=== PATIENT | male | born 1995 | race Caucasian/White ===

== ENCOUNTER → 2018-07-16 13:21 | Outpatient (CLI) | payer BC, MEDICAID, SELFPAY ==
[2018-07-16 14:10] LABS: Prolactin 108.2 ng/mL
[2018-07-16 14:37] LABS: Lactic Acid 3.9 mmol/L (0.4-2.0)
== END ==
PROVIDERS: Family Provider Pediatrics; PCP Pediatrics
DX: M62.838 Other muscle spasm (principal)
CPT/HCPCS: 36415; 83605; 84146

== ENCOUNTER → 2018-07-17 09:33 | Outpatient (CLI) | payer BC, MEDICAID, SELFPAY ==
[2018-07-17 10:58] LABS: Lactic Acid 1.8 mmol/L (0.4-2.0); Prolactin 20.5 ng/mL
== END ==
PROVIDERS: Family Provider Pediatrics; PCP Pediatrics
DX: R25.1 Tremor, unspecified (principal)
CPT/HCPCS: 36415; 83605; 84146

== ENCOUNTER 2019-06-01 09:00 | Outpatient (RCR) | payer BC, MEDICAID, SELFPAY ==
--- NOTE | 2019-06-01 10:17 | BH.SGPN.GN ---
Behaviors/Verbalizations/Mental Status: []Client alert and oriented, casually dressed and groomed. Eye contact poor-asleep at one point. Motor activity within normal limits for his diagnosis. Speech within normal limits. Affect flat, mood dysthymic. Thoughts linear, logical, no signs of hallucinations or delusions. Client Response/Progress/Benefit: []Client entered session quiet and appeared fatigued as he fell asleep during the beginning of group. Therapist able to wake client and client began to take notes. Client heard some of the benefits to developing goals which included; keeps us motivated, keeps us moving forward, gives us purpose, and makes us feel better. Client also heard some of the barriers to setting and accomplishing goals which included; fear of the unknown, unexpected stressors, feeling overwhelmed, unable to make decisions, procrastination, and unrealistic expectations of self. Client became more alert during education on developing SMART goals. Client participated in the group activity and reminded the group to be realistic. Client was also positive and had improved affect during the activity. Benefited from social engagement and learning about goal-setting. First day of IOP. Will continue to prevent decompensation, increase coping skills, and improve daily functioning.
--- NOTE | 2019-06-01 11:25 | BH.SGPN.GN ---
Behaviors/Verbalizations/Mental Status: []]Eye contact is poor, often looking down. Motor activity is appropriate. Appearance is casual. Grooming fair. Speech is Appropriate. Mood is depressed and anxious. Affect is congruent. Thoughts are linear and logical. No evidence of psychosis. Client Response/Progress/Benefit: [Pt attentive throughout, however contributed limited input to discussion. Taking notes throughout and nodding as fellow participants reflected on challenge activity. Engaged in creating own mental health SMART goal and seemed to benefit from developing ways to overcome potential barriers to reaching this goal. Pt struggled with identifying SMART goal, needed assistance with making goal specific and attainable. Pt identifies anxiety, lack of consistency in daily life and lack of confidence to be significant barriers to accomplishing his goals. Seemed to benefit from group assistance of identifying ways to overcome barriers. Pt's first day in IOP. Pt to continue IOP to improve healthy coping, decrease depression, and prevent decompensation.] Narrative Note: []
--- NOTE | 2019-06-03 09:01 | BH.SGPN.GN ---
Behaviors/Verbalizations/Mental Status: []Eye contact is good. Motor activity is restless at times. Appearance is casual, hygiene is fair. Speech is rapid at times. Mood is dysthymic and anxious. Affect is constricted. Thoughts are linear and logical. No evidence of psychosis. Reviewed daily check in sheet and no reports of suicidal ideations or intent. Client Response/Progress/Benefit: []Pt listened attentively to others, providing input when elicited by therapist. Emotion for today is pensive. Pt identified a stressor to be his brothers being agitating this morning when he was trying to get ready for IOP. Pt stated his brothers were making negative statements to him throughout the morning and were trying to impact his mood. Pt identified a positive was choosing to walk away from his brothers this morning instead of continuing to argue. Pt noted sometimes this strategy doesn't work because his one brother will follow him. Pt noted an additional positive as listening to music and doing meditation last night to calm himself down. Pt seemed to benefit from support from peers. Progress noted in application of emotion regulation skills outside of treatment environment. Continued IOP tx recommended to decrease anxiety, prevent decompensation, and increase social supports. Narrative Note: []
--- NOTE | 2019-06-03 11:15 | BH.PSA ---
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 Pt reported he started having pseudoseizures in July 2018 with his most recent episode in April 2019. Pt states his depression is his main problem. Pt endorses hopelessness, worthlessness, occasional guilt, passive suicidal ideation with no plan. He does not want to kill himself he says. Pt states he sometimes will think ?There is no point to life, you might as well end it.? Pt complains of anxiety and occasional panic attacks. His last panic attack was 2 days ago. He has been having problems with this for a long time off and on but his anxiety and depression recently worsened when he dropped out of college 18 mos ago due to anxiety. Pt reports his depression is making it more difficult to complete his ADL?s. Pt states he struggles with building friendships due to social anxiety and thinking everyone is judging him. Pt reports decrease in motivation, low energy, poor concentration, increased appetite, and loss of interest. No signs of anna. Pt cooperative throughout interview. Pt eye contact poor. Pt often rubbing head or hiding face into his shirt when appearing anxious. Pt?s speech became rapid when talking about stressful events. No signs of delusions or hallucinations. 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 Andreea Pascual at [facility] in middle school for counseling. First hospitalization:: denies Medication Trials:: No ECT Therapy:: No Age of first mental health symptoms: Pt reported he first started experiencing anxiety and depression in third grade following his first surgery. Current providers for mental health treatment (counselor, psychiatrist, bilingual case manager, etc.): Dr. Fall - psychiatrist since [employer]. Dr. Renee - pychologist for since jurnior year in high school. Development & Family of Origin - Childhood Significant Childhood Events: Pt started his surgeries for his cerebral palsy when in third grade which pt stated increased anxiety and caused increase stress with connecting with peers. Pt reported he always felt people saw him as vulnerable and weak because of his disability. - Family Who currently lives in your home?: pt states he lives with his dad, mom, and 4 siblings. Describe family composition:: Pt states doesn't have a great relationship with his dad katarzynase feels like his dad favors his sister. Pt reports he believes dad favors his sister because she is most normal. Pt states he has 4 siblings. Pt states he is a triplet with his triplet brother having autism and his triplet sister tends to be impulsive. Pt reports doesn't get along well with his triplet siblings. Pt states he has an 18 year old younger brother has selective mutism. Pt stated he used with this brother, but recently starting to have more discord. - Family History Family Hx of Psychiatric or AOD Problems: sister - ADHD. triplet brother - autism. younger brother - ADHD and selective mutism. Mom - Anxiety. Aunt - Bipolar disorder Ethnicity - Culture Do you identify yourself with any particular cultural, ethnic background, or community?: No - Sexuality Sexual Orientation: Heterosexual Spirituality - Yarsani Do you currently identify with any organized restoration?: Congregation - Beliefs Is there a particular form of support from this community you can use for your recovery?: No Mental Status - Memory Recent Memory: Good Remote Memory: Good - Concentration Concentration: Fair - Eye Contact Eye Contact: Poor - Speech Speech: Rapid, Repetitious - Thought Process Thought Process: Logical, Ruminations Insight: Fair Judgment: Fair Behavior: Anxious - Orientation Orientation: Time, Person, Place, Situation - Appearance Appearance: Appropriate - Mood Mood: Anxious - Affect Affect: Alert Suicide Assessment - Suicidal Ideation Have you ever felt like hurting yourself?: Yes Please explain:: Passive thoughts of - wish I were wouldn't be mad if I didn't wake up. have nothing worth living for, your life is going anywhere. Were you using ETOH/drugs at the time?: No Suicidal Intentional Rating Scale (SIRS): Suicidal thoughts (past), Current suicidal thoughts/No plan/Contracts for safety Physician Notification: If Active suicidal thoughts/Will not contract for safety is checked, contact physician and document in the Physician Notification section below. Violent Behavior/Abuse History - Homicidal Ideation Do you have any homicidal thoughts? If so, explain:: No Is there a known potential victim? If yes, who:: No - Abuse Have you ever been abused?: No - Life Events Are there any other significant life events?: - Grandpa of pancreatic cancer when pt when was 5 years old. Pt states his dog about 1 1/2 years ago. - Safety Do you ever feel threatened in your home? If yes, describe:: No Substance Use - Substance Substance Use Type: None Education & Occupational Histo - Education What is your level of education?: Some College Do you have any learning disabilities?: Yes - IEP - academic for extended time and more clarification on assignments. Service - Service Have you ever been in the ?: No Legal History - Records Have you had any past legal charges?: No Do you have any current legal charges?: No Have you ever been incarcerated? If yes, describe:: No - Court Orders Have you had any past court orders for psychiatric treatment?: No Do you have a present court order for psychiatric treatment?: No Problem Checklist - Current Problem Areas Problem List: Nutritional/Eating pattern changes - increased appetite, Pain management - recently had surgery to replace a pump - taking tylenol for pain., Depressed mood/sad, Anxiety, Anger/aggression, Inattention, Impulsivity - making impulsive decisions before thinking it through, Sleep problems - difficulty falling asleep because of anxious thoughts. 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 Pt reported he started having pseudoseizures in July 2018 with his most recent episode in April 2019. Pt states his depression is his main problem. Pt endorses hopelessness, worthlessness, occasional guilt, passive suicidal ideation with no plan. He does not want to kill himself he says. Pt states he sometimes will think ?There is no point to life, you might as well end it.? Pt complains of anxiety and occasional panic attacks. His last panic attack was 2 days ago. He has been having problems with this for a long time off and on but his anxiety and depression recently worsened when he dropped out of college 18 mos ago due to anxiety. Pt reports his depression is making it more difficult to complete his ADL?s. Pt states he struggles with building friendships due to social anxiety and thinking everyone is judging him. Pt reports decrease in motivation, low energy, poor concentration, increased appetite, and loss of interest. No signs of anna. Pt reports bullying throughout middle school and high school by peers. Pt states bullying has contributed to difficulty with making social connections because anxious around peers due to fear he is being judged. Pt states his cerebral palsy makes him appear ?vulnerable and weak? to others which results in others treating him like he is different. Pt states he has a lot of discord with his siblings in the home because ?we are like oil and water.? Pt reports support is mostly his mom, whom is patient?s legal guardian. Due to mental health symptoms pt tends to isolate and has limited social support besides his mom. Denies any hallucinations but says he feels like sometimes he hears his own thoughts and others can figure out his vulnerabilities. Treatment Plan Recommendations - Recommendations Guidelines: Special needs identified to be included in the development of an individualized treatment plan regarding past psychiatric history and treatment, developmental events, family relationships/events/culture, past and/or current educational, occupational, social, and residential experience, and legal status. Recommendations:: Due to pt's worsening depression, social anxiety, passive thoughts of , limited benefit from traditional outpatient counseling and mental health symptoms interferring with educational, social, and familial functioning IOP level of care recommended to prevent further decompensation or need for higher level of care.
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
--- NOTE | 2019-06-03 14:15 | BH.PSY.EVA_ITS ---
Initial Treatment Plan - Patient Information Visit Information: ADMISSION DATE: EXPECTED LOS: 4-6 weeks - Problems/Symptoms Problem #1:: Depression Symptom:: passive suicidal ideation, negative rumination, decreasede concentrat ion, lackof motivation Problem #2:: Anxiety Symptom:: worries about social situations and college
--- NOTE | 2019-06-03 16:12 | BH.MDN_ITS ---
Multi-Disciplinary Note - Note 60-min Individual Time Started:: 11:12 Date: 06/03/19 Purpose of session/treatment goals addressed:: Purpose of session was to assess pt's current symptoms and stressors. Also, gathered additional background information and established treatment goals for IOP level of care. Eye Contact:: Poor Motor Activity:: Restless Appearance:: Casual Speech:: Rambling, Rapid Mood:: Anxious Affect:: Full Thoughts:: Linear, Logical, No evidence of hallucinations/delusions noted Staff Interventions:: Therapist used open ended questions to elicit pt's current symptoms and stressors. Therapist used probing questions to gather additional background information. Therapist collaborated with pt to identify IOP treatment goals. Therapist inquired what skils have been helpful to pt in the past and what skills she has not found to be helpful. Therapist provided support by using active listening and validating emotions. Client Response:: Pt responded well to session AEB pt opening up about thoughts and feelings. Pt stated he was referred by his psychologist from [facility] at [facility] due to pseudoseizures and worsening depression. Pt stated he has struggled with psuedoseizures since July 2018, which is caused by difficulty managing his stress. Pt reported his depression has been worsening since April 2019 with increased suicidal thoughts. Pt stated he recognized he needed to get additional help becuase this is the worst my depression has been. Pt explained that he feels like a sword fight is occuring in his head all the time between his positive and negative thought patterns. Pt stated it gets exhausting trying to manage his unhelpful thought patterns. Pt reported his anxiety keeps him from being social due to being worried others are constantly judging him. Pt shared while in IOP goals he would like to focus on include: learning coping skills to manage anxiety and depression, skills to manage his negative and anxious thought patterns, and improve independence. Risks/Concerns:: Pt endorses passive thoughts of , but denies suicidal plan or intention to kill self. Pt states he does not want to . Pt is future focused. Progress Toward Goals/Plan:: No progress noted due to pt just starting IOP program. Focus of session was on building rapport and establishing IOP treatment goals. Pt to continue IOP to decrease anxiety, decrease depression, and prevent decompensation. Time Stopped:: 12:15
--- NOTE | 2019-06-05 09:04 | BH.SGPN.GN ---
Behaviors/Verbalizations/Mental Status: []Client alert and oriented, neatly dressed and groomed. Eye contact poor. Motor activity restless. Speech rapid. Affect full, mood euthymic. Thoughts linear, logical, no signs of hallucinations or delusions. Reviewed client?s symptom tracker, no risk for suicidal ideation, plan, or intent as of 06/05/19. Client Response/Progress/Benefit: []Client responded well to session, energetic and participating. Client reports feeling ?scattered and I?m trying to focus? today. Client shared he has had high energy since yesterday. Client is a member of a group in his town called [employer] and they went on a bus ride yesterday. Client reported ?I couldn?t stop laughing. I just kept laughing and laughing.? Client shared it felt good to experience ?natural? laughter again. Client reported he is also starting to feel more comfortable at IOP which is a positive. Client did not share a stressor today, but he reported feeling ?scattered.? Client stated when this happens he tries to use self-talk to ground himself. Appeared to benefit from connecting with peers and reflecting on positives. Will continue IOP to improve daily functioning and reduce the intensity of mental health symptoms.?
--- NOTE | 2019-06-05 10:12 | BH.SGPN.GN ---
Behaviors/Verbalizations/Mental Status: []Client alert and oriented, neatly dressed and groomed. Eye contact good. Motor activity slowed at the beginning of session, then within normal limits. Speech within normal limits. Affect constricted, mood anxious, agitated. Thoughts linear, logical, no signs of hallucinations or delusions Client Response/Progress/Benefit: []Client participated in group discussion and worksheet activity. Worked together with the group to define a crisis and discuss examples of crisis situations. Client helped the group explore how coping with crisis in unhealthy ways can lead to a mental health crisis. Client stated one can prevent external crises from turning into internal crises by recognizing early warning signs and using coping skills. Client shared unmanaged, warning signs, can ?snowball.? Group identified warning signs one could have which included; drinking, distractions, avoidance, sleeping, and crying. Client completed his own personal warning signs worksheet. Client identified his top three crisis warning signs to be ?turtling? or isolating and avoiding, negative thinking, and apathy. Benefited from group by increasing awareness of crisis and personal warning signs. Progress noted in client?s report of increased comfort in the group setting. Will continue IOP tx to improve functioning and increase emotional regulation.
--- NOTE | 2019-06-08 09:05 | BH.SGPN.GN ---
Behaviors/Verbalizations/Mental Status: [Eye contact is poor, often closing eyes. Motor activity is appropriate for pt baseline. Appearance is casual. Speech is Appropriate, at times speaking out loud to self utilizing positive self-talk. Mood is depressed, agitated, anxious. Affect is congruent. Thoughts are linear and logical, some evidence of rumination. No evidence of psychosis. Reviewed daily check in sheet and pt reports suicidal ideations at a rate of 3/5 which is consistent with pt baseline reports. Denies current plan or intent. Pt individual therapist was informed and will check-in with pt to further assess for safety.] Client Response/Progress/Benefit: [Pt actively listening throughout group discussion, AEB providing some input however remained a mostly passive participant. Emotion for today is apathetic which pt consistently indicates as his current mood. Pt attributes current emotion to feeling as though he has no purpose and as though he is ?falling through the cracks?. Went on to describe thoughts that others do not understand what he is going through regarding his mental health and shared spending much of the weekend laying down as a result. Pt able to identify a mental health positive despite ongoing depressive symptoms and noted that his supports have commented on pt increased display of personal responsibility since beginning IOP tx. Pt additionally receptive of and appeared to benefit from support provided by group. Progress noted in pt ability to begin challenging negative thoughts with assistance from group. Pt recommended continued IOP tx to promote healthy change behaviors, reduce depressive sx, and prevent decompensation.] Narrative Note: []
--- NOTE | 2019-06-08 10:20 | BH.SGPN.GN ---
Behaviors/Verbalizations/Mental Status: []Client alert and oriented, casually dressed and fair hygiene. Eye contact poor. Putting head down on table. Motor activity restless. Speech within normal limits. Affect flat, mood depressed. Thoughts linear, logical, no signs of hallucinations or delusions. Client Response/Progress/Benefit: []Despite pt reporting having a migraine and putting head down throughout group he still listened attentively Pt listened attentively to peers and provided input at times during session. Pt appeared to connect with peers comments about the impact perception of failure can have on mental health. Pt reported she tends to catastrophize her failures, which she identified can lead to avoidance. Pt stated she could connect with thought that she sometimes views herself as a failure. Group identified consequences of fear of failure to include: stagnation, isolation, giving up, not trying new things, and unhealthy relationships. Pt seemed to benefit from increased awareness of how fear of failure can impact mental health. Pt to continue IOP level of care to increase follow through of goals, continue to identify and challenge distorted thoughts, and prevent decompensation. Narrative Note: []
--- NOTE | 2019-06-08 11:23 | BH.SGPN.GN ---
Behaviors/Verbalizations/Mental Status: []Client alert and oriented, neatly dressed and groomed. Eye contact poor-head down at times. Motor activity appropriate. Speech within normal limits. Affect flat. Mood anxious, depressed. Thoughts linear, logical, no signs of hallucinations or delusions Client Response/Progress/Benefit: []Client taking notes and participating when prompted. Client completed fear of failure worksheet and shared with group. Client reported fear of failure has impacted his mental health and ability to deal with stress in life. Client shared fear of failure is keeping client from moving on in life. Client identified barriers to overcoming fear of failure which included; staying in his comfort zone, comparing himself to others, identity crisis, difficulty making decisions, and predicting disasters. Client identified things that he can do to overcome fear of failure such as; reaching out to supports, relaxing his mind, affirmations, and positive self-talk. Client reported his goal this week is to reach out to a healthy support. Benefited from identifying the impact that fear of failure has had on his life and developing strategies to overcome this. Client progressing as shown by his increasing self-awareness and willingness to practice new coping skills. Will continue IOP to prevent decompensation and improve emotional regulation.
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
--- NOTE | 2019-06-10 10:15 | BH.SGPN.GN ---
Behaviors/Verbalizations/Mental Status: [] Eye contact is good. Motor activity is appropriate. Appearance is casual. Speech is Appropriate. Mood is depressed/tired. Affect is flat. Thoughts are linear and logical. No evidence of psychosis. Client Response/Progress/Benefit: [] Pt participated very little in group activity or discussion. Pt often had his head down. Appeared to be attentive as he would at times yell out answers and make jokes which were topic related however overall distant and disengaged from group. He remarked that he had little sleep last night. Limited benefit from group. Narrative Note: []
--- NOTE | 2019-06-10 11:14 | BH.SGPN.GN ---
Behaviors/Verbalizations/Mental Status: [Client alert and oriented, casually dressed and groomed. Eye contact poor to fair. Motor activity appropriate to baseline. Speech within normal limits. Affect congruent to topic being discussed, mood depressed, anxious, irritable. Thoughts linear, logical, no signs of hallucinations or delusions. ] Client Response/Progress/Benefit: [Pt receptive of session, engaged throughout AEB pt providing positive input to group discussion. At times struggling with making off topic remarks, however did well to respond to redirection. Pt completed a worksheet where he identified personal pitfalls impacting mental health progress. Identified pitfalls as: insecurity, paranoia, emotional reasoning, self-doubt, anxiety, fear, feeling like a failure, self-comparison, and low self-esteem. Pt actively listening during discussion on how the strategies used to overcome pitfalls in challenge activity could be applied to daily life and discussed that positive thinking is most powerful for him. Group worked together to identify strategies to overcome personal and general pitfalls. Pt identified personal strategies to try as: do a daily mental health check-in, saying positive affirmations, and utilize more relaxation skills. Benefited from identifying personal and general pitfalls and strategies to over these pitfalls. Pt has made progress in IOP with increasing self-awareness and making daily efforts to internalize materials discussed . Recommended continue tx to promote change behaviors, increase ability regulate emotions, decrease depression, and prevent decompensation.] Narrative Note: []
== END 2019-06-10 23:59 ==
LOC: BHIOP 09:00
PROVIDERS: Family Provider Pediatrics; PCP Pediatrics; Referring Provider Psychiatry & Neurology Psychiatry; Visit Provider Psychiatry & Neurology Psychiatry
DX: F33.2 Major depressive disorder, recurrent severe without psychotic features (principal); F41.8 Other specified anxiety disorders; F84.0 Autistic disorder; F44.5 Conversion disorder with seizures or convulsions; G80.9 Cerebral palsy, unspecified; Z79.899 Other long term (current) drug therapy
CPT/HCPCS: H0035; 90837; 90853

== ENCOUNTER 2019-06-12 09:00 | Outpatient (RCR) | payer BC, MEDICAID, SELFPAY ==
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
--- NOTE | 2019-06-12 10:10 | BH.SGPN.GN ---
Behaviors/Verbalizations/Mental Status: []Client alert and oriented, casual appearance. Eye contact good. Motor activity appropriate. Speech within normal limits. Affect congruent, mood anxious. Thoughts linear, logical, no signs of hallucinations or delusions. Client Response/Progress/Benefit: []Client was an active participant in group activity and discussion. Client connected with the topic and able to identify common barriers that keep people stuck from moving forward. Worked with group to identify common internal barriers that keep people stuck which included; fear of the unknown, fear of rejection, fear of failure, unmanaged emotions, negative thoughts, self-doubt, and lack of motivation. Client identified his current reality as client walking down a hill ?that leads to depression and the grim reaper is following me.? Client stated he is starting to feel less depressed since starting IOP. Client shared his realistic, desired reality would be client moving up the hill instead of falling into depression. Client stated he would also have positive supports encouraging him and he would be successful. Client identified personal strengths including; wanting help, being unique, and being intelligent as positives that will help client move closer to his desired reality. Benefited from group as client was able to identify current mental health state and barriers that are impacting progress. Will continue IOP to prevent decompensation and reduce depression and anxiety.
--- NOTE | 2019-06-12 11:10 | BH.SGPN.GN ---
Behaviors/Verbalizations/Mental Status: []Client alert and oriented, casual dress, hygiene tended to. Eye contact poor. Motor activity appropriate. Speech within normal limits. Affect congruent, mood dysthymic. Thoughts linear, logical, no signs of hallucinations or delusions. Client Response/Progress/Benefit: []Pt active participant as evidenced by pt contributing thoughts and ideas during discussion and listened attentively to peers. Pt identified current barriers keeping him from desired realty include: uncontrollable worry, hard times, and fear of failure. Pt worked cooperatively to identify strategies to overcome various barriers which included: using healthy distractions, challenging negative thoughts, logging anxious thoughts, opposite action, and focusing on future goals. Pt reported he plans to use relaxation skills, mindfulness, and getting out of comfort zone to help overcome personal barriers to desired reality. Pt seemed to benefit from identifying strategies he will use to overcome personal barriers. Pt to continue IOP level of care to continue use of healthy coping skills, identify and challenge distorted thoughts and prevent decompensation. Narrative Note: []
--- NOTE | 2019-06-12 12:56 | BH.MDN ---
Multi-Disciplinary Note - Note 30-min Individual Time Started:: 12:18 Date: 06/12/19 Purpose of session/treatment goals addressed:: Purpose of session was to assess pt's current symptoms and stressors. Other topics included: reviewing homework from last individual session, identifying tentative plan for weekend to decrease apathy, and problem solved stressor of being alone at home tomorrow. Eye Contact:: Poor Motor Activity:: Restless Speech:: Rambling, Rapid Mood:: Euthymic, Anxious Affect:: Congruent Thoughts:: Logical, Racing, No evidence of hallucinations/delusions noted Staff Interventions:: Therapist used open ended questions to elicit pt's current symptoms and stressors. Therapist reviewed pt's homework from last session. Discussed tentative plan for weekend. Assisted pt with identiying activities and skills can engage in to help manage mental health symptoms. Challenged pt's negativity towards ideas/suggestions on strategies to decrease isolation. Client Response:: Pt reported he is doing better today compared to earlier in the week. Pt stated he is progressing with being more responsible at home in regards to completing chores. Pt reported prior to IOP he would just lay around and refuse to complete essential chores/daily responsibilities. Pt reported he also has decreased his anger outbursts by using positive affirmations and positive self-talk. Pt stated he practiced the grounding tool taught to him last individual session and reported it seemed to help bring him back to the moment. Pt shared he attempted to do creative writing, however is finding it a challenging goal due to his hand cramping. Pt open to trying creative writing by making a video recording or audio recording of his ideas. Pt expressed anxiety about being alone while his family goes to [place] for furniture shopping tomorrow. Pt stated he is anxious about being stuck with my own head because won't have others around him as distractions. Pt initially not willing to problem solve about decreasing isolation. Pt reported he would be willing to figure out if he can go visit another family member while his family goes to [place]. Pt stated he will also continue to practice his grounding tool and do a creative story video. Risks/Concerns:: Pt denies current suicidal ideation, plan, and intention. Progress Toward Goals/Plan:: Pt progressing with completing chores at home, using healthy skills to manage anger outbursts, and following through with homework. Pt continues to struggle with feeling isolated, distorted thought patterns, and social anxiety. Pt to continue IOP level of care to increase use of healthy coping skills to manage anxiety and depression, increase awareness of distorted thought patterns, and prevent decompensation. Time Stopped:: 12:35
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
--- NOTE | 2019-06-15 10:18 | BH.SGPN.GN ---
Behaviors/Verbalizations/Mental Status: []Client alert and oriented, neatly dressed and groomed. Eye contact fair-head down at times. Motor activity appropriate. Speech within normal limits. Affect congruent, mood anxious, dysthymic. Thoughts linear, logical, no signs of hallucinations or delusions. Client Response/Progress/Benefit: []Client quiet during discussion, but he participated in activity. Attentive and engaged during discussion of how emotions and negative thinking impact ability to change. Listened as the group identified benefits to making changes in our lives which included; feeling accomplished, improved self-esteem, reduced anxiety and depression, and better coping skills. Group then identified barriers to change or what keeps us from making changes which included; negative thinking, fear of the unknown, anxiety, fear of failure, lack of motivation, and ambivalence. Client participated along with group in activity where they identified and discussed the emotions related to change. Benefited from increased awareness and understanding of emotions, benefits, and barriers related to change. Client continues to report sleep issues which leads to client being fatigued during group. Client reports application of calming skills when he feels anxious which demonstrates progress. Will continue IOP to prevent decompensation and improve daily functioning.
--- NOTE | 2019-06-15 11:20 | BH.SGPN.GN ---
Behaviors/Verbalizations/Mental Status: [Eye contact poor to fair. Motor activity is appropriate for pt baseline. Appearance is casual. Speech is appropriate rate and tone. Mood is euthymic, tired. Affect is congruent with mood. Thoughts are linear and logical. No evidence of psychosis.] Client Response/Progress/Benefit: [Client receptive to session, attentive and providing insight to discussion. Client at times appearing distracted by own thoughts. Client participated in the activity and processed emotions and barriers associated with making change. Client appeared to connect with discussion on weighing the pros and cons associated with change and benefited from learning to do so through use of decisional balance sheet. Identified a change he would like to make to improve mental health as: improving communication of his own needs with social supports. Client reported potential benefits of change as: decreasing anxiety and depression, feeling validated, and increased self-confidence. While the costs of not making the change included: continued anxiety and ?despair?, feeling invalidated, dark thoughts, and loneliness. Progress noted in ability to identify how making this change may promote additional healthy behaviors and thinking patterns. Recommended continued IOP to continue to promote use of healthy coping skills and improve interpersonal effectiveness skills.] Narrative Note: []
--- NOTE | 2019-06-17 10:08 | BH.SGPN.GN ---
Behaviors/Verbalizations/Mental Status: []Eye contact is poor, often hiding face behind shirt or hands when talking. Motor activity is restless. Appearance is casual, fair grooming. Speech is Appropriate. Mood is anxious and dysthymic. Affect is congruent. Thoughts are linear and logical. No evidence of psychosis. Client Response/Progress/Benefit: []Pt active participant in group AEB pt contributing thoughts and ideas throughout session and listening attentively to peers. Group worked together to identify barriers to making changes or taking action in their lives which included: lack of self-awareness, old habits, negative mindset, fear of failure, negative emotions (depression, anxiety, etc..), lack of resources, and other people. Group also identified that benefits of change which included; improved relationships, increased communication, improved mental wellness, increased confidence, and feelings of accomplishment. Pt identified areas she would like to take back control over to include: ruminating on past negative memories, anxiety, depression, negative thoughts, self-criticism, low self-esteem, and low confidence. Benefited from group through awareness of personal areas want to improve and benefits to taking action towards mental wellness. To continue IOP level of care to learn and utilize healthy coping skills, continue to challenge distorted thoughts and prevent decompensation. Narrative Note: []
--- NOTE | 2019-06-17 11:08 | BH.SGPN.GN ---
Behaviors/Verbalizations/Mental Status: []Client alert and oriented, neatly dressed and groomed. Eye contact poor. Motor activity appropriate-covering mouth and leaning over when sharing. Speech within normal limits. Affect constricted, mood anxious, depressed. Thoughts linear, logical, no signs of hallucinations or delusions. Client Response/Progress/Benefit: []Client responded well to session, quiet, but participating in the worksheet and discussion when prompted. Client identified ?no more listening to my dark side? as the one thing he wants to start taking more action on in his mental health treatment. Client reported focusing on this will help client because ?my dark side makes me vulnerable and depressed.? Client attentive during psychoeducation on the different zones of change. Client able to give examples of benefits and costs in each zone. Client identified two small activities to promote behavioral activation towards his goal of not listening to his ?dark side.? Client?s goals included engaging in creative writing, art, and music when he begins to feel negative. Client also plans to spend more time each day around other people which client reports will reduce his ?vulnerability to negative dark side.? Client predicted that these activities will improve his mood. Benefited from psychoeducation and small goal setting. Progress noted as client has been trying to reach out more when feeling depressed and client is receptive to engaging in mindfulness strategies. Continues to report depressive symptoms on a daily basis and can continue to benefit from IOP tx.
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
--- NOTE | 2019-06-19 09:03 | BH.SGPN.GN ---
Behaviors/Verbalizations/Mental Status: []Client alert and oriented, casual dress, hygiene tended to. Eye contact good. Motor activity appropriate. Speech within normal limits. Affect congruent, mood euthymic and positive. Thoughts linear, logical, no signs of hallucinations or delusions. Reviewed client?s symptom tracker, indicated a 2/5 for suicidal ideation and a 0/5 for suicidal intent. These scores indicate a decrease in suicidal thoughts and intention. Pt future focused. Does not appear to be imminent risk of self or others. Client Response/Progress/Benefit: []Pt passive participant as evidenced by pt only contributing when elicited by therapist, however did appear to listen attentively to peers. Pt identified current emotion to be pleasant. Pt identified mental health positive to be meeting with outpatient psychologist whom helped pt see that his negative thoughts are something pt can regain control over. Pt reported another positive is deciding to transfer to [employer] so he can take courses to increase structure and routine in his life. Pt stated stressor is dad having to go back to [place] for work, which pt stated when dad is gone it can cause some strain in the house. Pt reported also feeling worried about his brother leaving for college and pt transferring to a new college. Progress noted with pt deciding to attend college this fall to improve structure and routine. Pt to continue IOP level of care to increase use of healthy coping skills, prevent decompensation, and challenging distorted thought patterns. Narrative Note: []
--- NOTE | 2019-06-19 10:18 | BH.SGPN.GN ---
Behaviors/Verbalizations/Mental Status: [Client alert and oriented, casual appearance. Eye contact fair to good. Motor activity appropriate. Speech within normal limits. Affect congruent, mood anxious, dysthymic. Thoughts linear, logical, no signs of hallucinations or delusions. ] Client Response/Progress/Benefit: [Pt was an active participant in group discussion. Processed quote of the day with peers. Group discussed the MH benefits to open and clear communication with support and providers. Pt connected with peers discussing use of nonverbal behavior to communicate how she feels because. Shared doing so out of anxiety, but recognized that this has had unhelpful impacts on overall relationships. Group discussed the barriers that tend to impact clear and open communication which include: fear, apathy, distorted thoughts, misinterpretations, past negative experiences, not wanting to hurt other?s feelings and assumptions. Pt was attentive during psycho-education on communications styles (aggressive, passive, passive-aggressive, and assertive). Also provided input on the pros and cons to each communication style. Pt stated she could connect with all the different communication styles, specifically that of passive and passive-aggressive. Pt seemed to benefit from increased insight on how communication impacts mental health. Pt to continue IOP level of care to increase generalization of healthy coping skills, identify and challenge distorted thoughts and prevent decompensation.] Narrative Note: []
--- NOTE | 2019-06-19 11:20 | BH.SGPN.GN ---
Behaviors/Verbalizations/Mental Status: []Client alert and oriented, causally dressed and groomed. Eye contact poor. Motor activity appropriate. Speech within normal limits. Affect congruent-laughing, mood euthymic. Thoughts linear, logical, no signs of hallucinations or delusions. Client Response/Progress/Benefit: []Client responded well to session, attentive and engaged in activity. Attentive during ongoing psychoeducation on the different communication styles. Client able to gain insight into his communication style and client reported he is either aggressive or passive. Client shared he is aggressive when he is frustrated and when he feels overwhelmed, he becomes passive. Client reported these communication styles have negatively impacted his mental health and relationships. Client shared when he is passive, he shuts down and isolates, which reinforces his depression. Participated in group activity and took an active role. Able to use the activity to reflect on ways to improve communication. Attentive during psychoeducation on [employer]N and reported he wants to work on being mindful when communicating and not shutting down as much. Appeared to benefit from increasing self-awareness and practicing in the moment coping skills. Will continue tx to prevent decompensation and further reduce depression.
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
--- NOTE | 2019-06-22 10:15 | BH.SGPN.GN ---
Behaviors/Verbalizations/Mental Status: []Client alert and oriented, casually dressed and fair grooming. Eye contact poor. Motor activity appropriate. Speech within normal limits. Affect constricted, mood depressed and anxious. Thoughts linear, logical, no signs of hallucinations or delusions. Client Response/Progress/Benefit: []Pt semi-active participant AEB pt contributing thoughts at times during discussion and appearing to listen attentively to peers. Group identified unhealthy boundaries to include: difficulty saying no, not valuing own thoughts/opinions, sharing too much information, and not asking for help. Pt reported in regards to boundaries pt struggles at times with not knowing how much personal information to share with others and difficulty trusting others. Pt seemed to benefit from increased awareness how difficulties with setting boundaries can negatively impact mental health. Pt to continue IOP level of care to decrease depression, continue to identify and challenge distorted thought patterns, and prevent decompensation. Narrative Note: []
--- NOTE | 2019-06-22 11:26 | BH.SGPN.GN ---
Behaviors/Verbalizations/Mental Status: [Client alert and oriented, casually dressed and appropriately groomed. Eye contact fair. Motor activity appropriate to pt baseline. Speech within normal limits, providing decreased input compared to previous session. Affect congruent to topic being discussed, mood euthymic. Thoughts linear and logical, no signs of hallucinations or delusions. ] Client Response/Progress/Benefit: [Pt responded well to session, providing limited input however appeared to be listening throughout. This was evidenced by pt nodding or making responses of agreement during discussion. Pt listened during discussion reviewing different boundary setting styles and reported connecting with the ?rigid? boundary setting style. Pt indicated relating to the various characteristic of rigid boundaries however opted not to discuss further regarding personal impact rigid boundaries have had on his mental health. Pt appeared to benefit from increasing awareness of his personal boundary style and from learning ways to increase healthy boundaries. Pt progress appears limited as pt engagement in group is often variable, making it difficult to determine his level of progress. Recommended continued IOP tx to improve anxiety management and emotion regulation skills, decrease depressive sx, and prevent decompensation.] Narrative Note: []
--- NOTE | 2019-06-24 09:06 | BH.SGPN.GN ---
Behaviors/Verbalizations/Mental Status: []Client alert and oriented, casually dressed and groomed. Eye contact poor. Motor activity restless. Speech within normal limits. Affect flat, mood irritable, dysthymic, anxious. Thoughts linear, logical, no signs of hallucinations or delusions. Reviewed client?s symptom tracker, and client's scores were consistent with client's baseline. No risk factors noted as of 06/24/19. Client Response/Progress/Benefit: []Client entered session agitated and withdrawn, but client became more engaged and able to de-escalate symptoms. Client reports feeling ?exhausted but I?m keeping myself from falling to the negative side? today. Client shared he continues to experience stressors at home with his brother interfering with client?s sleep schedule. Client recognizes that when he does not sleep well, he feels more depressed, irritable, and anxious. Client is also sad because his brother is going off to college soon and he will miss him. Client stated he has been working hard on ?not giving into my dark side? but client reports feeling defeated today. The group offered support to client and helped client brainstorm strategies to prevent further decompensation. Client recognized he can benefit from being social at group and listening to positive music. Will continue IOP tx to prevent decompensation and improve emotional regulation.?
--- NOTE | 2019-06-24 10:14 | BH.SGPN.GN ---
Behaviors/Verbalizations/Mental Status: []Client alert and oriented, casually dressed, fair grooming. Eye contact good. Motor activity WNL. Speech appropriate rate/tone. Affect congruent, mood euthymic, anxious. Thoughts linear, logical, no signs of hallucinations or delusions. Client Response/Progress/Benefit: []Pt responded well to session, provided input, supportive feedback, and listened attentively to peers. Pt appeared to connect with the quote, providing insight that ?focusing on the past keeps him stuck in rumination which leads to increased depressive symptoms. Pt participated in group discussion regarding mental health benefits of change. Pt identified three small personal changes to improve mental health as: increase positive thoughts, increased self-confidence, and getting out more. Identified current barriers keeping pt from making those changes to be not being able to make eye contact due to anxiety, thinking people believe he is weird, fear of failure, and self-criticism. Pt appeared to benefit from gaining awareness of personal changes that would improve mental health and the barriers keeping client stuck. Progress noted in client level of insight regarding current barriers impacting mental health change and ability to make personal connections with topic at hand. Continue IOP to further increase healthy coping skills, improve socialization and use of supports, and prevent decompensation. Narrative Note: []
--- NOTE | 2019-06-24 11:17 | BH.SGPN.GN ---
Behaviors/Verbalizations/Mental Status: []Client alert and oriented, casual dress, hygiene fair. Eye contact poor, at times fair. Motor activity appropriate. Speech within normal limits. Affect congruent, mood euthymic and positive. Thoughts linear, logical, no signs of hallucinations or delusions. Client Response/Progress/Benefit: []Pt was an active participant, did well to participate in group activity and provided insight and input to discussion at times. Worked with group members to identify connections between activity and strategies for overcoming barriers to making changes. Identified a specific change she would like to make for his mental health, barriers to making that change, and a SMART goal to reach that change. Shared he would like to work on improving his social skills. Pt stated her SMART goal is to make eye contact at least two times during a conversation. Benefited from group as she was able to identify strategies to overcome barriers to change and create a plan for implementing one small change promoting personal growth. Pt to continue IOP level of care to decrease isolation, challenge distorted thoughts and prevent decompensation. Narrative Note: []
--- NOTE | 2019-06-26 10:15 | BH.SGPN.GN ---
Behaviors/Verbalizations/Mental Status: []Client alert and oriented, casually dressed and groomed. Eye contact poor. Motor activity restless. Speech within normal limits-talking quietly to self. Affect constricted, mood anxious. Thoughts linear, logical, no signs of hallucinations or delusions. Client Response/Progress/Benefit: []Client was an active participant in group discussions, providing insight and feedback. Client shared choosing a different path ?is complex and overwhelming.? The group and client worked together to identify barriers that keep one from choosing a new and healthier path to mental wellness which included; unhealthy habits, self-doubt, feeling overwhelmed, lack of awareness, substances, isolation, negative thinking, and ?choosing misery.? Attentive during psychoeducation on the chapters of life. Client was attentive during discussion, providing insight to distinguishing factors in each chapter. Reports that group topic reminded client that change is scary, but it can also benefit one?s mental health in many ways. Benefited from increased awareness and education on barriers to choosing new wellness paths and chapters of life. Progress noted in client?s improving socialization during group. Client continues to report depressive symptoms that interfere with his functioning.
--- NOTE | 2019-06-26 11:15 | BH.SGPN.GN ---
Behaviors/Verbalizations/Mental Status: []Client alert and oriented, casually dressed and groomed. Eye contact good. Motor activity appropriate. Speech within normal limits. Affect congruent, mood anxious and depressed. Thoughts linear, logical, no signs of hallucinations or delusions. Client Response/Progress/Benefit: []Client was an active participant in group discussion, contributing to discussion and listened attentively to others. Completed worksheet and willing to share with the group. Client reported belief he is in chapter 3? as client shared he has improved awareness of his self destructive behavior and is putting effort to change how he gal and manages stress. Client shared to get to the next chapter he wants to focus on setting small SMART goals that will help him focus on moving forward. Stated he recognizes importance of taking responsibility for his own actions so he can learn and make positive changes. Benefited from group by identifying thoughts and behaviors that have kept him stuck and developing plan to promote progress. Will continue in IOP to increase consistent utilization of healthy coping, promote gains, and prevent decompensation. Narrative Note: []
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
--- NOTE | 2019-06-29 09:00 | BH.SGPN.GN ---
Behaviors/Verbalizations/Mental Status: [] Eye contact is poor. Eye are often closed. Motor activity is restless. Appearance is casual. Speech is Appropriate. Mood is anxious. Affect is congruent. Thoughts are linear and logical. No evidence of psychosis. Reviewed daily check in sheet and pt reports 3/5 for suicidal thoughts and 0/5 for intent. This is baseline for patient. Client Response/Progress/Benefit: [] Pt spoke when prompted. Distracted during group. Appeared tired AEB frequent yawns. Disinterested. Long-standing poor social skills. He reports frustration related to his housing situation specifically his brother whom is Autistic and frequents has verbal outbursts and constantly bothers pt. He discussed how this impacts his mental health. He plans on attending college at [employer] and wants to secure housing of his own. He is hesitant as in the past this did not work well. Was in a program at another college where the housing was sub-par for his needs. Reports hope however currently struggles as he reprots being trapped at home with his brother. Mentioned freuqently desire to live independtly and to make friends. Narrative Note: []
--- NOTE | 2019-06-29 10:10 | BH.SGPN.GN ---
Behaviors/Verbalizations/Mental Status: []Client alert and oriented, casually dressed and groomed. Eye contact poor. Motor activity appropriate. Speech within normal limits. Affect constricted, mood depressed and anxious. Thoughts linear, logical, no signs of hallucinations or delusions. Client Response/Progress/Benefit: []Pt engaged in session as evidenced by pt providing input throughout session and listening attentively to peers. Pt connected with peers about sometimes defining himself by his mental illness. Stated he has defined himself as aspergers or as cerebral palsy. Pt stated he engages in self-stigma by isolating because thinks others view him as weird. Pt recognized by isolating he creates a self-fulfilling prophecy because isolation leads to decreased social connections. Pt stated mental health stigma can keep him stuck from moving forward. Pt worked cooperatively with small group to identify various myths and facts about mental illness. Pt seemed to benefit from increased awareness of impact societal and self-stigma has on progress. Progress continues to be hindered by stressful home environment which is impacting pt's ability to generalize skills and get sufficient amount of sleep. Pt to continue IOP level of care to decrease anxiety, continue use of healthy coping, and prevent decompensation. Narrative Note: []
--- NOTE | 2019-06-29 11:14 | BH.SGPN.GN ---
Behaviors/Verbalizations/Mental Status: []Client alert and oriented, neatly dressed and groomed. Eye contact fair. Motor activity appropriate. Speech within normal limits. Affect constricted, mood dysthymic. Thoughts linear, logical, no signs of hallucinations or delusions. Client Response/Progress/Benefit: []Client responded well to session, participating in small group discussion and attentive throughout. Group identified the benefits of addressing stigma which included; increased self-confidence, feeling accepted, improved relationships, and less self-deprecation. Client helped the group identify thoughts and behaviors people engage in that reinforce stigma. Client reported he uses self-deprecating language and not accepting compliments which reinforces stigma in his life. Group brainstormed strategies to combat social and perceived stigma which included; talking to supports, practicing positive self-talk, not using labeling language, and providing psychoeducation. Client reported he will practice saying positive things about himself to combat stigma. Appeared to benefit from increasing awareness of ways he reinforces stigma and how to combat stigma. Will continue IOP tx as client can benefit from ongoing thought challenging and application of healthy coping skills.
--- NOTE | 2019-06-29 14:05 | BH.TPR ---
Treatment Plan Review Date of Treatment Plan Review:: 06/29/19
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
--- NOTE | 2019-07-01 10:15 | BH.SGPN.GN ---
Behaviors/Verbalizations/Mental Status: []Client alert and oriented, casually dressed and groomed. Eye contact poor. Motor activity appropriate. Speech within normal limits. Affect constricted, mood depressed and anxious. Thoughts linear, logical, no signs of hallucinations or delusions. Client Response/Progress/Benefit: []Pt engaged in session AEB pt providing input throughout discussion and listened attentively to peers. Pt reported being a person that has a physical disability his perspective is different compared to someone that is not disabled because when walking alone he is worried someone might perceive him as weak and try to hurt him. Pt connected with peers statements that if have a negative perspective it can keep one stuck from making progress. Pt agreed when in a depressed state, his perspective on life tends to be dark, which he recognizes intensifies his mental health symptoms. Pt seemed to benefit from increased awareness of impact perspective has on mental health. Progress noted with pt engaging in session despite experiencing several recent stressors. Pt to continue IOP level of care to increase use of healthy coping skills, continue to challenge distorted thought patterns, and prevent decompensation. Narrative Note: []
--- NOTE | 2019-07-01 11:20 | BH.SGPN.GN ---
Behaviors/Verbalizations/Mental Status: [Client alert and oriented, casually dressed and groomed. Eye contact fair to good. Motor activity appropriate. Speech within normal limits. Affect congruent, mood dysthymic, anxious. Thoughts linear, logical, no signs of hallucinations or delusions. ] Client Response/Progress/Benefit: [Client receptive of session, attentive and engaged some during small group discussion. At times appearing distracted by own thoughts and struggling to remain present in discussion. Worked with group to discuss the mental health benefits of recognizing strengths which included; improved self-esteem, better relationships, increased hope, decreased anxiety, and willingness to ask for help. Group identified the barriers that have prevented them from acknowledging their strengths and successes. These barriers included; negative thoughts, feeling like a burden, fear of being judged, and past experiences. Group identified strategies to overcome barriers that prevent them from seeing strengths. Pt appeared more engaged during this portion of discussion. These strategies included; keeping track of ?wins?, challenging negative thoughts, using affirmations, and reaching out to supports to challenge perspective when needed. Client was able to identify personal strengths. Strengths included; intelligence, willingness to seek help, resilience, and ability to advocate for himself. Appeared to benefit from recognizing personal strengths and identifying strategies to overcome barriers. Will continue IOP tx to improve mood stability, further increase healthy coping skill application, improve communication and boundary setting skills, and prevent decompensation.] Narrative Note: []
--- NOTE | 2019-07-01 14:03 | BH.MDN ---
Multi-Disciplinary Note - Note 30-min Individual Time Started:: 09:25 Date: 07/01/19 Purpose of session/treatment goals addressed:: Purpose of session was to assess pt's current symptoms and stressors. Other topics included processing recent stressors, challenging distorted thoughts, reviewing healthy skills to manage depressive symptoms, and identifying activities to engage in outside the home. Eye Contact:: Fair Motor Activity:: Restless Appearance:: Disheveled Speech:: Rambling, Rapid Mood:: Anxious, Depressed, Other - tearful Affect:: Labile Thoughts:: Logical, Racing, No evidence of hallucinations/delusions noted Staff Interventions:: Therapist used open ended questions to elicit pt's current symptoms and stressors. Therapist validated pt's emotions and encouraged pt to not hold in his emotions and thoughts. Therapist processed stressors of younger brother leaving for college yesterday and finding out that he cannot register for college classes this semester. Therapist gently challenged pt's all or nothing thinking patterns. Therapist assisted pt with reviewing healthy skills to help pt manage depressive symptoms. Therapist discussed pt potentially attending the [employer] as a way to decrease isolation and get out of the house since he can't take college courses until spring. Provided support by active listening. Client Response:: Pt reported he is feeling frustrated, sad, and depressed today. Pt stated his younger brother left for college yesterday and now he feels alone. Pt became tearful when talking about his brother being gone because doesn't feel connected to his other family members as much as he did with younger brother. Pt stated in addition to his brother leaving he also found out he likely won't be able to register for college classes this semester. Pt reported he is feeling defeated and depressed. Pt stated he was excited to finally be taking steps to return to college, but now can't do that. Pt stated he is open to attending the [employer] and is agreeable to talk with his mom about going there for support. With assistance from therapist pt identified getting out of his room, doing creative writing, and challenging his negative thoughts are skills that can help prevent him from going into depressed state. Risks/Concerns:: Denies current suicidal ideation, plan or intention to date. Progress Toward Goals/Plan:: Slight regression in progress noted with pt expressing depressive symptoms since faced with two stressors of brother going to college and not being able to sign up for college courses this semester. Pt continues to struggle with regulating his emotions when faced with a stressor and ruminates. Pt recommended to continue IOP to challenge distorted thoughts, consistently apply healthy coping skills and prevent decompensation. Time Stopped:: 09:55
--- NOTE | 2019-07-03 09:00 | BH.SGPN.GN ---
Behaviors/Verbalizations/Mental Status: [] Eye contact is poor. Motor activity is appropriate. Appearance is casual. Speech is Appropriate. Mood is irritable. Affect is congruent. Thoughts are linear and logical. No evidence of psychosis. Reviewed daily check in sheet pt notes 3/5 for suicidal thoughts and 0/5 for intent. This is baseline for pt per primary therapist. Client Response/Progress/Benefit: [] Pt was quiet most of group. When called upon pt was very animated and engaged. Notes the he spent a great deal of time yesterday with supports and peers outside. Reports a trip to the zoo. Discussed how this was helpful for his mood and increased his energy and motivation. Struggles with social situations and making friends and reports that days like those are very helpful. Trouble staying on topic and was often making jokes about the zoo. Will continue in IOP to maintain safety, increase health skills and social skills, and improve daily functioning. Narrative Note: []
--- NOTE | 2019-07-03 10:24 | BH.SGPN.GN ---
Behaviors/Verbalizations/Mental Status: [Client alert and oriented, casually dressed and appropriately groomed. Eye contact fair. Motor activity appropriate, consistent with pt baseline. Speech within normal limits. Affect congruent, mood anxious, euthymic. Thoughts linear, logical, no signs of hallucinations or delusions. ] Client Response/Progress/Benefit: [Client receptive to session, somewhat engaged in discussion and did well to increase in participation during activity portion of group. He was a passive participant during discussion on emotion regulation, barriers to regulating emotions, and potential long-term benefits of healthy regulation versus costs of unhealthy means for coping. Pt identified that he often experiences increased negative thoughts when dysregulated which impacts his ability to self-soothe and reinforces depression/anger. Identified his negative thoughts as barriers to communicating emotions in stressful situations as well. Client participated in the activity and did well to make efforts in managing anxiety about being tasked to provide instructions to the group. Progress noted in patient ability to use in the moment coping skills for emotion regulation during activity rather than shutting down when becoming overwhelmed. Client to continue IOP to reinforce utilization of healthy coping skills, emotion regulation, and healthy communication with supports, as well as prevent decompensation. ] Narrative Note: []
--- NOTE | 2019-07-03 11:27 | BH.SGPN.GN ---
Behaviors/Verbalizations/Mental Status: []Client alert and oriented, casually dressed and groomed. Eye contact poor. Motor activity appropriate. Speech within normal limits. Affect congruent, mood euthymic. Thoughts linear, logical, no signs of hallucinations or delusions Client Response/Progress/Benefit: []Client attentive and providing insight to discussion on different zones of regulation. Attentive during psychoeducation on 4 zones of regulation. Client able to identify how he feels in each zone as well as how he acts in each zone. Client also able to identify coping skills he can use to support himself in each zone which included: watching funny videos, positive self-talk, ?positive structure,? taking breaks, and getting out of the house. Client shared he was in the ?yellow? zone yesterday as client was feeling on edge and overwhelmed, but client was able to cope and return to baseline or the ?green zone.? Client recognized he could benefit from continuing to use positive self-talk today and keeping a ?positive structure.? Benefited from group from increased education on zones of regulation or stages of alertness for emotions and healthy coping skills to use for each zone. Recommended continued IOP tx to promote more consistent mood stability and further reduce depression.
--- NOTE | 2019-07-06 10:10 | BH.SGPN.GN ---
Behaviors/Verbalizations/Mental Status: []Client alert and oriented, casually dressed and fair grooming. Eye contact poor. Motor activity appropriate. Speech within normal limits. Affect constricted, mood anxious and dysthymic. Thoughts linear, logical, no signs of hallucinations or delusions. Client Response/Progress/Benefit: []Pt was an active participant as evidenced by pt providing input during discussion and listening attentively to others. Pt worked with the group to define anger and its causes, as well as the internal and external impacts of anger. Group identified potential consequences of unhealthy anger include: losing relationships, guilt, increased stress, resentment, lose job, depression and anxiety. Pt identified underlying factors of his anger include: frustration, stress, anxiety, depression, hunger, loneliness, fear, tiredness, and paranoia. Pt stated common reactions he shows when angry include: yelling, panic, aggression, sadness, and arguing. Benefited from group by increasing awareness of the negative impacts of unhealthy anger and underlying factors that contribute to his personal anger. Progress noted with pt challenging negative thought patterns. Pt to continue IOP level of care to maintain gains, continue to challenge negative thought patterns, and prevent decompensation. Narrative Note: []
--- NOTE | 2019-07-06 14:04 | BH.MDN ---
Multi-Disciplinary Note - Note 45-min Individual Time Started:: 11:15 Date: 07/06/19 Purpose of session/treatment goals addressed:: Purpose of session was to assess pt's current symptoms and stressors. Other topics included: identifying skills to manage mental health symptoms and identifying treatment progress. Eye Contact:: Good Motor Activity:: Appropriate Appearance:: Casual Speech:: Appropriate Mood:: Anxious, Dysthymic Affect:: Congruent Thoughts:: Linear, Logical, No evidence of hallucinations/delusions noted Staff Interventions:: Therapist used open ended questions to elicit pt's current symptoms and stressors. Processed recent stressor with pt's father. Discussed and reviewed healthy coping skills that can help pt manage mental health symptoms. Elicited pt's thoughts about treatment progress since starting IOP. Provided support by using active listening. Client Response:: Pt stated he had a stressful evening yesterday because his dad was drinking alcohol and being a 7 year old. Pt reported when his dad drinks too much then his dad instigates problems. Pt stated his dad was mocking pt and not saying helpful comments. Pt reported he attempted to ignore his dad's comments, but admitted there were several times he responded negatively to his dad. Through discussion pt recognized when his dad is instiagting it is in pt's best interest to go somewhere else in the home to get space so pt doesn't say anything unhelpful. Pt reported over the weekend he had improved mood with decreased negative thinking. Pt stated he is able to catch his negative and suicidal thoughts easier and able to manage the negative or suicidal thoughts. Pt reported he has used the coping skill of opposite action. Pt stated the other day he didn't want to do his chores, but used opposite action which made him feel more accoplished to help out. Risks/Concerns:: Pt reports passive thoughts of , denies suicidal ideation, plan or intention to date. Pt future focused. Progress Toward Goals/Plan:: Progress noted with pt using healthy coping skills of thought challenge, opposite action, and focusing on positive situations. Pt continues to struggle with emotional regulation when involved in a conflct with someone else. Pt reporting improved mood and increased ability to manage passive thoughts of . Pt recommended to continue IOP to maintain gains, increase consistent use of healthy coping skills and preventing decompensation. Time Stopped:: 12:00
--- NOTE | 2019-07-08 09:00 | BH.SGPN.GN ---
Behaviors/Verbalizations/Mental Status: [] Eye contact is poor. Motor activity is baseline. Appearance is casual. Speech is Appropriate. Mood is anxious. Affect is congruent. Thoughts are linear and logical. No evidence of psychosis. Reviewed daily check in sheet and pt reports 2/5 for suicidal thoughts and 0/5 for intent. This is baseline for patient. Client Response/Progress/Benefit: [] Pt participated at times. Pt volunteered to go first today. Daily symptoms tracker notes 5/5 for anxiety, panic, and agitation. Reports that he is planning on attending [employer] in the spring and expects to begin classes in 11/2019. He has accepted the fact that he was not able to start sooner despite being frustrated. Has plans to start slow with 1-2 classes. He appears excited and notes that he wants to start learning about film, be social, and perhaps make friends with similar interests. Touched briefly on challenges with college in the past. Group provided feedback and encouragement that despite past poor experiences this new opportunity will be different. Progress noted. Not catastrophizing setbacks and is hopeful about the future which is big improvement from last week. Will continue in IOP to maintain safety, prevent decompensation, improve social skills, increase support, and increase coping strategies. Narrative Note: []
--- NOTE | 2019-07-08 10:16 | BH.SGPN.GN ---
Behaviors/Verbalizations/Mental Status: []Client alert and oriented, casually dressed and fair grooming. Eye contact poor. Motor activity appropriate. Speech within normal limits. Affect flat, mood depressed. Thoughts linear, logical, no signs of hallucinations or delusions. Client Response/Progress/Benefit: []Pt passive participant AEB pt providing minimal input throughout session, appeared disengaged throughout beginning of session AEB playing a game on phone. Pt showed increased engagement during activity and reviewing the resiliency components. Pt benefitted from brainstorming benefits of being resilient which included: stronger than before, improving ability to cope, builds confidence and self-esteem, and sense of accomplishment. Pt connected with others that not having enough motivation can impact ability to be resilient. Pt progress hindered by pt's lack of follow through of using skills outside treatment environment. Recommend continued IOP tx to prevent decompensation, promote healthy change behaviors, as well as increasing utilization of healthy coping skills. Narrative Note: []
--- NOTE | 2019-07-10 09:05 | BH.SGPN.GN ---
Behaviors/Verbalizations/Mental Status: [] Eye contact is poor. Motor activity is baseline. Appearance is casual. Speech is Appropriate. Mood is anxious. Affect is congruent. Thoughts are linear and logical. No evidence of psychosis. Reviewed daily check in sheet and pt reports 2/5 for suicidal ideations and 0/5 for intent. This is actually below pt's baseline Client Response/Progress/Benefit: [] Pt was more active than usual in group today. Spoke for an extended period of time. Talked about current life stressors and his relationship with his sister and how this impacts his self-esteem. Emotion for today is agitated, exhausted, and flustered. Notes increased responsibility around the house as he is completing chores with less resistance. Notes that he is jealous of most people including those in his family who are normal (referring to his physical disabilities). Notes how his disabilities have impacted his socialization and independence as well as how others view him. Progress noted per pt report. Will continue in IOP to maintain safety, increase coping skills, and increase support and socialization. Narrative Note: []
--- NOTE | 2019-07-10 10:11 | BH.SGPN.GN ---
Behaviors/Verbalizations/Mental Status: []Eye contact is fair. Motor activity is appropriate. Appearance is causal. Speech is Appropriate. Mood is anxious and positive. Affect is congruent. Thoughts are linear and logical. No evidence of psychosis. Client Response/Progress/Benefit: []Pt responded well to session AEB pt listening attentively to others and contributing to discussion throughout group. During discussion pt stated self can be our own worst enemy because if use unhealthy coping then we can keep ourselves stuck. Pt connected with peers during discussion about common unhealthy skills that are often used to manage stressors and mental health. Pt stated he often gal with stress by eating snack foods and watching cartoons. Pt stated he can utilize distraction techniques as a way to cope too frequently which then becomes unhealthy because he is using distraction as avoidance. Pt reported the environment one is raised in can impact how one gal in life. Pt seemed to benefit from increased awareness of benefits of using healthy coping skills and understanding importance of having balance between internal and external coping skills. Pt to continue IOP level of care to continue identifying and challenging distorted thoughts, increase utilization of healthy coping skills, and prevent decompensation. Narrative Note: []
--- NOTE | 2019-07-10 11:14 | BH.SGPN.GN ---
Behaviors/Verbalizations/Mental Status: [Client semi-alert, at times head was down and he appeared to be sleeping, oriented, casually dressed and groomed. Eye contact avoidant. Motor activity appropriate. Speech within normal limits. Affect congruent, mood dysthymic, fatigued. Thoughts linear, logical, no signs of hallucinations or delusions. ] Client Response/Progress/Benefit: [Client receptive of session and appearing to listen throughout AEB pt contributing to discussion at various points. Client often had his head down and was looking away which is consistent with pt typical response to increased fatigue or anxiety. He did well to respond to prompt and direct questions, indicating that pt was attentive throughout. Listened throughout the discussion on the different categories of coping skills and was able to identify a category of coping skills he would like to improve upon. Pt identified wanting to increase grounding skills and indicated that he could start small by spending more time outdoors as a means of doing so. Client appeared to benefit from increasing her repertoire of healthy coping skills. Progress noted in client?s increased engagement despite apparent anxiety. Will continue IOP to promote consistent application of healthy coping skills, decrease depression, as well as prevent decompensation.] Narrative Note: []
== END 2019-07-11 23:59 ==
LOC: BHIOP 09:00
PROVIDERS: Family Provider Pediatrics; PCP Pediatrics; Referring Provider Psychiatry & Neurology Psychiatry; Visit Provider Psychiatry & Neurology Psychiatry
DX: F33.2 Major depressive disorder, recurrent severe without psychotic features (principal); F41.9 Anxiety disorder, unspecified; F84.0 Autistic disorder
CPT/HCPCS: H0035; 90832; 90834; 90853

== ENCOUNTER 2019-07-15 09:00 | Outpatient (RCR) | payer BC, MEDICAID, SELFPAY ==
--- NOTE | 2019-07-15 10:21 | BH.SGPN.GN ---
Behaviors/Verbalizations/Mental Status: [Client alert and oriented, appropriately dressed and groomed. Eye contact fair to good. Motor activity appropriate. Speech within normal limits. Affect congruent, mood euthymic, anxious. Thoughts linear, logical, no signs of hallucinations or delusions. ] Client Response/Progress/Benefit: [Client responded well to session, more actively contributing to discussion than in past groups. Client indicated connecting with the topic of cognitive distortions and provided an example of catastrophizing. Client shared negative thoughts tend to come easier than positive thoughts and that we can ?convince ourselves that things are going to happen before they even do?. Client reported connecting with the potential impacts unmanaged negative automatic thoughts can have on mental health and functioning. Client did well to work with the group on defining the various types of cognitive distortions and ways they have impacted mental health in the past. Client reported connecting with distortions of all or nothing thinking, disqualifying the positives, mind-reading, and catastrophizing. Client reported that ?either I go all in and do something or hide and not do it at all?. Appeared to benefit from increasing awareness of cognitive distortions and how they can impact emotions and behaviors. Client continues show strides in more consistent use of coping skills to manage symptoms and improve daily functioning. Client to continue IOP to decrease depressive symptoms, isolation, and rumination.] Narrative Note: []
--- NOTE | 2019-07-15 11:25 | BH.SGPN.GN ---
Behaviors/Verbalizations/Mental Status: []Eye contact is fair. Motor activity is appropriate. Appearance is casual. Grooming fair. Speech is Appropriate, rapid at times. Mood is euthymic and anxious. Affect is congruent. Thoughts are linear and logical. No evidence of psychosis. Client Response/Progress/Benefit: []Pt active participant during session AEB pt providing contributions throughout group session and engaging in activities. Pt worked cooperatively with peers during group activity. Pt related with peers comments about importance of needing to have awareness and put forth the effort to defeat distorted thought patterns. Pt reported a distorted thought he has is I can't figure all this college stuff out at once, it's too much. Pt identified this thought makes him feel anxious, overwhelmed, discouraged, and afraid. Pt identified his thought is the cognitive distortion catastrophizing. Pt able to reframe distorted thought to taking it one step at a time, don't jump to the end immediately. Pt seemed to benefit from increased awareness of cognitive distortions and practicing reframing distorted thoughts. Pt to continue IOP level of care to maintain gains, improve consistent application of healthy skills and prevent decompensation. Narrative Note: []
--- NOTE | 2019-07-15 15:45 | BH.MDN_ITS ---
Multi-Disciplinary Note - Note 30-min Individual Time Started:: 09:30 Date: 07/15/19 Purpose of session/treatment goals addressed:: Purpose of session was to review pt's current symptoms and stressors. Other topics included reviewing treatment progress since starting IOP, identifying strategies to maintain progress, and solidfying aftercare plans post discharge from IOP. Eye Contact:: Good Motor Activity:: Appropriate Appearance:: Casual Speech:: Appropriate Mood:: Euthymic Affect:: Congruent Thoughts:: Linear, Logical, No evidence of hallucinations/delusions noted Staff Interventions:: Therapist used open ended questions to elicit pt's current symptoms and stressors. Therapist elicited pt's thoughts about treatment progress since starting IOP. Collaborated with pt to identify strategies to maintain progress. Reviewed aftercare plans for after discharge from [facility]. Client Response:: Pt reported he notes progress with increased awareness of negative thoughts, improved ability to reframe negative thoughts, increased use of healthy coping skills, decrease in suicidal thoughts, and overall improvement in mood. Pt stated in order to maintain success he needs to continue applying healthy coping skills he has learned, challenge distorted thoughts, increase socialization, engage in self-care, and get out of his house more often. Pt reported for aftercare he plans to continue to follow up with Dr. Renee for cousneling and will set up tranpsortation to go to [facility] to gain additional supports and decrease isolation. Risks/Concerns:: Denies current thoughts of suicide, intention to date, or plan. future focused. Progress Toward Goals/Plan:: Progress noted with pt reporting improved mood, increased self-awareness of distorted thoughts, improved ability to challenge thoughts, and use of healthy coping skills. Pt is to discharge from [facility] on 07/17/19. Time Stopped:: 10:10
--- NOTE | 2019-07-17 09:00 | BH.SGPN.GN ---
Behaviors/Verbalizations/Mental Status: [] Eye contact is good. Motor activity is baseline. Appearance is casual. Speech is baseline. Mood is euthymic. Affect is full. Thoughts are linear and logical. No evidence of psychosis. Reviewed daily check in sheet and reports 1/5 for suicidal thoughts and 0/5 for intent. This is the lowest his tracker for suicidal thoughts has been. Client Response/Progress/Benefit: [] Pt participated at times during the group discussion. Shared with the group that IOP has been extremely beneficial for him. Discussed how it helped him socially and increased his confidence. Discussed entering [facility] with overwhelming suicidal ideations however currently those thoughts have decreased a great deal. Notes being hopeful about his future and starting at college. He admits that increased independence has been a stressor however overall reports progress. Engaged and laughing with peers. Pt will be discharged from [facility] today. Narrative Note: []
--- NOTE | 2019-07-17 10:16 | BH.SGPN.GN ---
Behaviors/Verbalizations/Mental Status: [Client alert and oriented, casually dressed and appropriate grooming. Eye contact fair to good, at times closed or looking away. Motor activity appropriate for pt baseline. Speech within normal limits. Affect congruent, mood dysthymic, anxious. Thoughts linear, logical, no signs of hallucinations or delusions] Client Response/Progress/Benefit: [Pt remained semi-engaged during discussion AEB providing some input but at times becoming distracted by own thoughts, willing to complete worksheet activity. Pt connected with the group topic of Crisis and did well to work with group to define crisis. Shared that in the past he has struggled with crisis management but is learning to better regulate before responding. Pt identified an example of potential crisis as living in a toxic environment. Connected with discussion on how small setbacks can develop into a crisis if coping skills are unhealthy, providing personal example of recent stressor he was able to prevent from turning into a crisis. Pt shared that his common crisis response is becoming overwhelmed and bitter, as well as avoiding which has prevented him from getting the support needed and escalated crisis as a result. Group identified warning signs for crisis which included; increased sleep, irritability, decreased appetite, and suicidal thoughts. Pt completed the personal warning signs worksheet and identified crisis warning signs to include; increased negative thinking, racing thoughts, and isolation. Benefited from group by increasing awareness of crisis and personal warning signs. Progress noted as pt able to make personal connections between crisis response and reinforcing mental health sx, discussed successfully preventing crisis escalation during individual session when receiving difficult news. To discharge from [facility] given progress made, pt encouraged to follow-up with outpatient providers to continue to maintain gains and promote continued skill development.] Narrative Note: []
--- NOTE | 2019-07-17 11:15 | BH.SGPN.GN ---
Behaviors/Verbalizations/Mental Status: []]Client alert and oriented, casually dressed and groomed. Eye contact poor. Motor activity appropriate. Speech within normal limits. Affect congruent, mood euthymic. Thoughts linear, logical, no signs of hallucinations or delusions. Client Response/Progress/Benefit: []Client responded well to session as evidenced by client listening attentively to others and sharing when prompted. Client identified her warning signs for crisis and gained further awareness of his earliest warning signs. Client recognized that awareness of these warning signs can prevent further crisis and help client utilize healthy coping skills to break the cycle. Client created a crisis action plan to help client better manage earliest warning signs for crisis of uncontrollable worries, racing thoughts, and isolating/avoiding others. Client?s plan included coping skills such as changing environment, reminding self thoughts are thoughts, go outside, staying out of bedroom, and using breathing techniques. Client appeared to benefit from creating a crisis action plan and increasing his self-awareness. Client has made significant treatment progress with decreased depressive symptoms, decreased anxiety, and improved daily functioning. Client is to discharge from [facility] today. Narrative Note: []
--- NOTE | 2019-07-17 13:49 | BH.DS ---
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 Pt reported he started having pseudoseizures in July 2018 with his most recent episode in April 2019. Pt identified at admission his depression as his main problem. Pt endorsed hopelessness, worthlessness, occasional guilt, passive suicidal ideation with no plan. At admission pt reported he sometimes would think ?There is no point to life, you might as well end it.? Pt complained of anxiety and occasional panic attacks. AT admission pt's depression making it more difficult to complete his ADL?s. Pt struggled with building friendships due to social anxiety and thinking everyone is judging him. Pt reported decrease in motivation, low energy, poor concentration, increased appetite, and loss of interest. No signs of anna. Discharge Diagnoses:: F33.1 Depressive disorder recurrent moderate, social anxiety disorder, autism spectrum disorder, history of conversion disorder with pseudoseizures Reason for Discharge:: Pt has made significant progress on his treatment goals and no longer meets medical necessity for [facility] level of care. - Treatment Progress During Treatment & Response: Pt has demonstrated signficiant reduction in depressive and anxious symptoms as indicated by his DSM 5 cross cutting measure scores from intake compared to discharge scores. Per pt's self-report on the depression subscale pt's discharge scores indicate a 50% reduction in depressed symptoms when compared to his intake scores. Per pt's self-report on the anxiety subscale pt's discharge scores indicate a 50% reduction in depressed symptoms when compared to his intake scores. Pt's discharge scores demonstrate a 53% reduction in symptoms compared to intake scores. Pt has also progressed with increased awareness of distorted and negative thought patterns with improved ability to challenge and reframe thoughts. Pt's participation was variable at times he would provide input throughout discussion and other sessions pt remained passive. Pt attended consistently throughout progam. Pt struggled with completing assigned homework from both individual and group therapy sessions. Issues Still to be Addressed:: Pt could benefit from continued focus on identifying and challenging distorted and negative thought patterns. Pt also could benefit from focusing on increasing independence as pt often relies on his mom to do tasks for him. Discharge Recommendations/Instructions:: Pt recommended to return to Dr. Pratt for continued individual counseling and group social skills group. Pt encouraged to go to [facility] for increased social support, increased structure and routine. Discharge Handout: Complete Discharge Handout with client on aftercare options and continuity of care.
== END 2019-07-17 14:43 | disposition home or self-care (01) ==
LOC: BHIOP 09:00
PROVIDERS: Family Provider Pediatrics; PCP Pediatrics; Referring Provider Psychiatry & Neurology Psychiatry; Visit Provider Psychiatry & Neurology Psychiatry
DX: F33.1 Major depressive disorder, recurrent, moderate (principal); F41.8 Other specified anxiety disorders; F84.0 Autistic disorder; F44.9 Dissociative and conversion disorder, unspecified
CPT/HCPCS: H0035; 90832; 90853

== ENCOUNTER 2020-10-13 10:30 | Outpatient (RCR) | payer BC, MEDICAID, SELFPAY ==
--- NOTE | 2020-04-28 07:21 | HP.OTEVAL_ITS ---
Patient's Visit Information DENNIS MALLOY is a 24 year old M, referred to Occupational Therapy by Dr. Rola De La Cruz MD, with a diagnosis of CP hand cramping/pain. Date of Evaluation: 04/27/20 Occupational Therapist: Daphnie Wagner, KATIE/Sussy, CHT - Subjective This 24 year old male was seen for OT eval with dx of hand cramping/pain cerebral palsy, diplegic. pt likes to watch tv, and play [employer] games. pt states he has had difficulty with new crutches pt states he has had them for about a month- hands have been hurting with cutting food and with grasping or holding objects he has noticed his hand contours in strange possitons. pt would like to decrease this pain and improve his ability to use bilateral hand for ADLs and IADLs. - Pain right hand 0 Pain Intensity Range: 2 left hand 0 Pain Intensity Range: 2 - ROM ROM Comments: pt demo bilateral UE ROM WFL. with palpation pt demo tightness in bilateral Forearms/hand. - Strength Wrist: right 5/5 left 5/5 Refinery Technician: right 45# left 60# Lateral Pinch: right 12# left 20# Tripod Pinch: right 12# left 16# - Sensation Sensation Comments: denies - Movement Muscle Tone: min tone bilateral UE Movement Comments: pt demo with min tone bilateral UE and hands- pt demo with exstream ext. of right digits while flexing other digis- - Quick DASH-Disab of Arm,Shoulder& Hand Quick DASH Score: 34.0900 - Goals Goal:: pt will report no pain greater than 1/10 with use of hands with ADls and IADLs by d/c Goal:: Pt will demo a understanding of stretching program to assist in mtg. tone of BUE to increase use of bilateral UE with ADLS and IADLs. pt will demo the ability to grasp/release a variety of different size objects with no increase in pain or tone limiting functional grasp by d/c Goal:: pt and staff will demo understanding of use of padded goves or change out handles to decrease pain with ambulation by 4th visit. - Rehabilitation General Assessment: pt arrives with staff and mother- Pt arrives ambulating with forearm canes and bilateral AFOs.- states new forearm canes and he doesnt like the arm cuffs or the handles. Pt has pain with ambulating with right hand- Pt demo with UB ROM WFL but noted UB tone is min and mod in forearms/hands limiting pts ability to use one hand IND with grasping objects for ADls or IADls. pt would benefit form skilled OT services 2x week for 4 weeks to ed. pt on stretching program and to make adj to foream crutches. Today therapist ed. pt on forearm stretching for supination/pronation and wrist extensor stretch. pt, staff and mother demo understanding and agree to POC. Rehabilitation Potential: Good - Anticipated Interventions A/AAROM/PROM, Ergonomic Education, Fine Motor Coord/Nate, Neuro Reeducation, ADL Training, Caregiver Training, Home Program - Visit Plan Frequency: 1-2x /Week Duration: 4 Weeks TEXT: Thank you for the opportunity to evaluate your patient. For Medicare and Medicare HMO plans, please review the plan of care and approve it. It will need to be FAXED BACK to us at [phone] for Medicare purposes. Please let me know if there are questions or concerns regarding this plan of care. Physician Signature: Date:
--- NOTE | 2020-04-28 07:29 | HP.PTEVAL ---
Patient's Visit Information DENNIS MALLOY is a 24 year old M referred to Physical Therapy by Dr. Rola De La Cruz MD with a diagnosis of BLE weakness, gait difficulty, CP. Date of Evaluation: 04/27/20 Physical Therapist: Talon Zavala DPT - Visit Plan Frequency: 2x /Week Duration: 4 Weeks Plan: Start with estabilishing a LE stretching program, add in BLE strengthening (focusing on hip ER, abd, flexion, hip extension, knee extension), and functional strengthening. Add in balance and reactive correction from loss of balance training. Add in gait training with focus on knee positioning, posture and stability; progressing functional distances as tolerated. - Subjective Pt is here today for his initial evaluation with diagnosis of BLE weakness and gait mechanics, Cerebral Palsy. Pt. was in PT through his school when in high school. Pt. is attending College at [employer], studying [employer] Workflow Management making. Pt. does have a baclofen pump which his medication was just increased. Pt. reports not doing exercises at home, but has been trying to go on walks at park. Reports he can walk upto 300 yards prior fatigue. Pt. reports having some falls, but has been able to catch him self. He did have a fracture of his R hip with plate? placement, unsure of date. Pt. reports having BLE weakness. He would like to walk better with his crutches. Pt. denies N/T and no other LE issues. He does wear B AFOs. - Objective POSTURE: Pt. has fwrd flexed posture in sitting and standing. He is able to improve with VC/TCing, difficult to maintain. Pt. has B hip ER with knee valgus positioning. Pt. has high guard with arms in stance initially. PALPATION: Pt. has no pain with palpation. NEURO: Pt. has normal sensation,but hyper tone throughout BLEs. ROM: LLE- ankle- stiff throughout; knee ROM 0-0-85deg, hip- flexion 90deg, abd 30deg, ER 20deg, IR 30deg. RLE- ankle stiff throughout; knee- 0-0-83deg; hip- flexion 93deg, abd 33deg, ER 22deg, IR 28deg. PT. is tight throughotu bilateral HS and hip flexors. MMT: RLE- knee- ext 4+/5, flexion 4/5; hip- flexion 4/5, abd 3-/5, ext 3/5, LLE- knee- ext 4/5, flexion 4-/5; hip- flexion 4/5, abd 3-/5, ext 3+/5. Pt. very limited in bilateral hip ER 3-5/ bilat. GAIT: Pt. walks with cruthes, lofstrand, with flexed posture, knee valgus and hip IR postioning. Pt. tends to look down throughout pattern. Pt. is able to walk without crutches, biut has exaggerated patttern. STAIRS: Pt. is able to complete with use of BHR, but reports being nervous with descending. TUsec with lofstrand crutches - Goals Goal 1:: LTG: Pt. to be I with HEP. Goal Time Frame: 4-6 Weeks Goal 2:: LTG: Pt. to establish a consistent stretching program. Goal Time Frame: 4-6 Weeks Goal 3:: LTG: Pt. to ambulate 1500' with improve pattern independently with crutches allowing for increased community mobility. Goal Time Frame: 4-6 Weeks Goal 4:: LTG: Pt. to have increased BLE strength by 1/2 grade of all effected musculature. Goal Time Frame: 4-6 Weeks Goal 5:: LTG: Pt. to have increased score on TUG to 20sec without LOB. Goal Time Frame: 4-6 Weeks Goal 6:: STG: Personal health staff to be educated in stretching and strenghtening program to assist with consistency. Goal Time Frame: 2-4 Weeks - Rehabilitation Potential Physical Therapy Diagnosis: Pt. has signs and symptoms consistent with difficulty with gait, BLE weakness and tightness of BLEs with CP. Pt. would benefit from PT to address his BLE weakness, gait difficulty and estabilish consistency with stretching. Rehabilitation Potential: Good - Anticipated Interventions Patient/Client Instruction: Educate patient on: Condition, Plan of Care, Risk Factors, Benefits of Fitness Program For the Purpose of:: To improve decision making, To facilitate caregiver knowledge, To improve self management, To prevent re-injury, To improve ability to perform tasks related to life management, To improve tolerance to ADL's Therapeutic Exercise to Include: Strength training, Power training, Endurance training, Balance training, Coordination, Agility training, Body mechanics, Postural training, Flexibilty training, Gait and locomotor training, Passive ROM, Active ROM For the Purpose of:: To decrease pain, To improve nutrient delivery to tissue, To increase oxygenation perfusion, To improve muscle performance and motor function, To improve ability to perform ADL's, To improve gait and locomotor functions, To improve health of tissue, To decrease soft tissue restriction, To increase flexibility/ROM, To improve endurance, To improve balance, To improve safety with gait Thank you for the opportunity to evaluate your patient. For Medicare and Medicare HMO plans, please review the plan of care and approve it. It will need to be FAXED BACK to us at [phone] for Medicare purposes. For Medicare only, by signing this I certify the plan of care. Please let me know if there are questions or concerns regarding this plan of care. Physician Signature: Date:
--- NOTE | 2020-06-01 11:28 | HP.OTDCSUM ---
It has been my pleasure to treat DENNIS MALLOY under orders from Dr. Rola De La Cruz MD, for the diagnosis of CP hand cramping/pain for a total of 10 visit(s). Please see the following information for a summary of their discharge status. % Improvement: 80 Objective/Function: pt demo min tone in bilateral forearms. has padded golves for ambulation with forearm crutches Patient Goals: Decrease Pain, Be More Independent in ADLS, Learn how to Manage Lymphedema Goal:: pt will report no pain greater than 1/10 with use of hands with ADls and IADLs by d/c Goal:: Pt will demo a understanding of stretching program to assist in mtg. tone of BUE to increase use of bilateral UE with ADLS and IADLs. pt will demo the ability to grasp/release a variety of different size objects with no increase in pain or tone limiting functional grasp by d/c Goal:: pt and staff will demo understanding of use of padded goves or change out handles to decrease pain with ambulation by 4th visit. Plan: D/C Discharge Comments: pt was seen for 10 OT visits to work on HEP for stretching, accomidation with using padded gloves for walking with forearm crutches. Pt demo ind. with home stretching. pt to cont with HEP. If there are questions or concerns regarding this patient's occupational therapy, please fell free to call me at [phone]. Thank you for the referral of this patient. Sincerely, Daphnie Wagner, OTR/L, CHT
--- NOTE | 2020-06-10 17:05 | HP.PTREVAL ---
Dr. Rola De La Cruz MD, It has been my pleasure to treat DENNIS MALLOY over the last 10 visits for BLE weakness, gait difficulty, CP. Please see the progress note below for an update on the physical therapy plan of care! Subjective: Pt. reports overall I am doing well, but I still want to be stronger. Pt. reports continued walking out in community, but in frequently. Objective/Function: Pt. continues to be tight throughout Bilateral hip adductors, HS. He is weak throughout hip ER, quads and HS. Pt. is improving with his strenght, but still has his greatest weakness with above stated muscle groups. Pt. is walking well with lofstrand crutches. He can walk without AD, but does have increased crouched posture. Pt. would benefit from progression to gym strengthening exercises at this point in time. Plan Plan: Start with estabilishing a LE stretching program, add in BLE strengthening (focusing on hip ER, abd, flexion, hip extension, knee extension), and functional strengthening. Add in balance and reactive correction from loss of balance training. Add in gait training with focus on knee positioning, posture and stability; progressing functional distances as tolerated. Goals Goal 1:: LTG: Pt. to be I with HEP. Goal Time Frame: 4-6 Weeks Goal Progress: Progressing Goal 2:: LTG: Pt. to establish a consistent stretching program. Goal Time Frame: 4-6 Weeks Goal Progress: Goal Met Goal 3:: LTG: Pt. to ambulate 1500' with improve pattern independently with crutches allowing for increased community mobility. Goal Time Frame: 4-6 Weeks Goal Progress: Progressing Goal 4:: LTG: Pt. to have increased BLE strength by 1/2 grade of all effected musculature. Goal Time Frame: 4-6 Weeks Goal Progress: Progressing Goal 5:: LTG: Pt. to have increased score on TUG to 20sec without LOB. Goal Time Frame: 4-6 Weeks Goal Progress: Progressing Goal 6:: STG: Personal health staff to be educated in stretching and strenghtening program to assist with consistency. Goal Time Frame: 2-4 Weeks Goal Progress: Progressing Anticipated Interventions Patient/Client Instruction: Educate patient on: Condition, Plan of Care, Risk Factors, Benefits of Fitness Program For the Purpose of:: To improve decision making, To facilitate caregiver knowledge, To improve self management, To prevent re-injury, To improve ability to perform tasks related to life management, To improve tolerance to ADL's Therapeutic Exercise to Include: Strength training, Power training, Endurance training, Balance training, Coordination, Agility training, Body mechanics, Postural training, Flexibilty training, Gait and locomotor training, Passive ROM, Active ROM For the Purpose of:: To decrease pain, To improve nutrient delivery to tissue, To increase oxygenation perfusion, To improve muscle performance and motor function, To improve ability to perform ADL's, To improve gait and locomotor functions, To improve health of tissue, To decrease soft tissue restriction, To increase flexibility/ROM, To improve endurance, To improve balance, To improve safety with gait Please do not hesitate to contact me at [phone] by phone or if you have questions or concerns regarding this new plan of care! Sincerely, NEETU TinsleyT
--- NOTE | 2020-06-29 11:42 | HP.PTDCSUM ---
It has been my pleasure to treat DENNIS MALLOY referred by Dr. Rola De La Cruz MD, with the diagnosis of BLE weakness, gait difficulty, CP for a total of 16 visit(s). Discharge Date: 06/29/20 Please see the following information for a summary of their discharge status. Subjective: Pt. reports no pain currently. Pt. is to start school next week. Pt. reports being compliant with walking at home and going to local track to increase endurance and LE strengthening. Pt. reports being 85% better overall. % Improvement: 85 Objective/Function: Pt. is doing much better. Pt. is walking well with B lofstrand crutches, and home is using 1 crutch at times. Pt. is doing better with his strength as well. MMT: knee ext 4+/5, knee flexion 4/5; hip flexion 4/5, abd 3/5, hip ER 3/5, hiip extension 4+/5. I talked with him about continueing a stretching program at home and doing bridging, clamshells, squats, and increasing walking distances at home. pt. consents to this HEP. I also encouraged him to when he feels comfortable to get into a gym or rec center to work on his gym exercises. Pt. cosents to this as well. Goal 1:: LTG: Pt. to be I with HEP. Goal Progress: Goal Met Goal 2:: LTG: Pt. to establish a consistent stretching program. Goal Progress: Goal Met Goal 3:: LTG: Pt. to ambulate 1500' with improve pattern independently with crutches allowing for increased community mobility. Goal Progress: Goal Met Goal 4:: LTG: Pt. to have increased BLE strength by 1/2 grade of all effected musculature. Goal Progress: Goal Met Goal 5:: LTG: Pt. to have increased score on TUG to 20sec without LOB. Goal Progress: Goal Met Goal 6:: STG: Personal health staff to be educated in stretching and strenghtening program to assist with consistency. Goal Progress: Goal Met Plan: Pt. to be DC to from PT today to HEP and gym exercises. Discharge Comments: Pt. was seen for his BLE strengthening and gait. Pt. is walking well with B lofstrand crutches and has seen an increase in BLE strengthening. Pt. is independent with his gym and home exercise program both for stretching and strengthening. Pt. will be DC from PT at this point in time. If there are questions or concerns regarding this patient's physical therapy, please feel free to call me at [phone]. Thank you for the referral of this patient. Sincerely, NEETU TinsleyT
--- NOTE | 2020-07-05 14:58 | HP.PTREVAL ---
Dr. Rola De La Cruz MD, It has been my pleasure to treat DENNIS MALLOY over the last 16 visits for BLE weakness, gait difficulty, CP. Please see the progress note below for an update on the physical therapy plan of care! Subjective: I talked to patient's mother today and she was re thinking his DC. Mother is concerned about his regressing. I talked to her about him starting school and how he has been doing. Patient can still benefit from continued strengthening with progression to gym exercises. I talked to her about progressing to gym/recreation center once able. Mother and patient would like to him to resume PT with focus on LE strengthening for gait progression. Objective/Function: I am requesting to reopen his case x1 per week with focus on LE strengthening progressing towards independent gym program. Thanks and sorry for the confusion. Plan Plan: Pt. to be DC to from PT today to HEP and gym exercises. Goals Goal 1:: LTG: Pt. to be I with HEP. Goal Time Frame: 4-6 Weeks Goal Progress: Progressing Goal 2:: LTG: Pt. to establish a consistent stretching program. Goal Time Frame: 4-6 Weeks Goal Progress: Goal Met Goal 3:: LTG: Pt. to ambulate 1500' with improve pattern independently with crutches allowing for increased community mobility. Goal Time Frame: 4-6 Weeks Goal Progress: Goal Met Goal 4:: LTG: Pt. to have increased BLE strength by 1/2 grade of all effected musculature. Goal Time Frame: 4-6 Weeks Goal Progress: Goal Met Goal 5:: LTG: Pt. to have increased score on TUG to 20sec without LOB. Goal Time Frame: 4-6 Weeks Goal Progress: Goal Met Goal 6:: STG: Personal health staff to be educated in stretching and strenghtening program to assist with consistency. Goal Time Frame: 2-4 Weeks Goal Progress: Goal Met Anticipated Interventions Patient/Client Instruction: Educate patient on: Condition, Plan of Care, Risk Factors, Benefits of Fitness Program For the Purpose of:: To improve decision making, To facilitate caregiver knowledge, To improve self management, To prevent re-injury, To improve ability to perform tasks related to life management, To improve tolerance to ADL's Therapeutic Exercise to Include: Strength training, Power training, Endurance training, Balance training, Coordination, Agility training, Body mechanics, Postural training, Flexibilty training, Gait and locomotor training, Passive ROM, Active ROM For the Purpose of:: To decrease pain, To improve nutrient delivery to tissue, To increase oxygenation perfusion, To improve muscle performance and motor function, To improve ability to perform ADL's, To improve gait and locomotor functions, To improve health of tissue, To decrease soft tissue restriction, To increase flexibility/ROM, To improve endurance, To improve balance, To improve safety with gait Please do not hesitate to contact me at [phone] by phone or if you have questions or concerns regarding this new plan of care! Sincerely, Talon Zavala DPT
--- NOTE | 2020-12-02 09:19 | HP.PTDCSUM ---
It has been my pleasure to treat DENNIS MALLOY referred by Dr. Rola De La Cruz MD, with the diagnosis of BLE weakness, gait difficulty, CP for a total of 25 visit(s). Discharge Date: 10/13/20 Please see the following information for a summary of their discharge status. Subjective: Pt. reports no issues today. He reprots no pain. He has been walking well, but not going to gym due to covid and not been able to get to local track to walk due to weather. % Improvement: 80 Objective/Function: Pt. is overall doing well. He is basically independent with gym exercises. He has improved his strength and stability with gait. He is still spastic with his movements, as expected. I talked with him about being more consistent with gym exercises or home exercises to continue to build LE strength and promote assistant terminal manager maintence of his strengthening. Pt. consents. I did talk to his mother with patients permission about the case and we agreed to trial on his own and if he is unable to complete on his own or if he is having regression to return to physician and potential back to PT if needed. Mother consents. Goal 1:: LTG: Pt. to be I with HEP. Goal Progress: Goal Met Goal 2:: LTG: Pt. to establish a consistent stretching program. Goal Progress: Goal Met Goal 3:: LTG: Pt. to ambulate 1500' with improve pattern independently with crutches allowing for increased community mobility. Goal Progress: Goal Met Goal 4:: LTG: Pt. to have increased BLE strength by 1/2 grade of all effected musculature. Goal Progress: Goal Met Goal 5:: LTG: Pt. to have increased score on TUG to 20sec without LOB. Goal Progress: Goal Met Goal 6:: STG: Personal health staff to be educated in stretching and strenghtening program to assist with consistency. Goal Progress: Goal Met Plan: Pt. to trial exercsies and try to be more consistent with exercise at home. Pt. consents. Pt. to trial for 2-3 weeks to see if he can self-manage. If I do not see him in 4 weeks, I will DC at that point in time. Discharge Comments: Pt. did well with PT with focus on BLE strengthening and progression of gym exercises to compelte independently. He is trial these exercises on his own. He plans to do gym exercises, but was unsure if able to with COVID. He alos has home exercises which he has been given that he is able to work on as well. I stressed the need to be active with him to maintain and possibly improve currently mobility. Pt. to be DC to HEP and gym exercises this date. If there are questions or concerns regarding this patient's physical therapy, please feel free to call me at [phone]. Thank you for the referral of this patient. Sincerely, NEETU TinsleyT
== END 2020-10-13 19:00 | disposition home or self-care (01) ==
LOC: PT 10:30
PROVIDERS: PCP Pediatrics; Referring Provider Physical Medicine & Rehabilitation; Visit Provider Physical Medicine & Rehabilitation
DX: G80.8 Other cerebral palsy (principal)
CPT/HCPCS: 97110; 97140; 97161; 97164; 97166; 97530

== ENCOUNTER 2021-02-27 12:00 | Outpatient (RCR) | payer BC, MEDICAID, SELFPAY ==
--- NOTE | 2020-12-19 11:52 | HP.OTEVAL_ITS ---
Patient's Visit Information DENNIS MALLOY is a 25 year old M, referred to Occupational Therapy by ODILIA Story, with a diagnosis of CP, Spastic quadripleagia. Date of Evaluation: 12/19/20 Occupational Therapist: Daphnie Wagner, KATIE/Sussy, CHT - Subjective Pt arrives to clinic with staff with new order for OT eval-tx. with dx spastic quadripleagia, CP. pt states he has moved into apt with a room mate. pt does use staff 24 hours a day. Pt states he is doing ok, and states staff does help with meal prep, opening container, and cleaning and laundry. pt states he recived new crutches about a year ago and has had pain in his hands since the new ambulating crutches. pt states he is using a metal massaging tool to do self deep tissue massage to help with is muscle tightness. pt states the temp. makes him a lot more tightness. pt states he has been trying to get more active. pt states he has pain in the hyperthener region- and MCP palm region of his hand. - Pain right hand 3 Pain Intensity Range: 0, 3 - ROM Opposition: Right 10 left 10 ROM Comments: pt demo full hand ROM composite and extension of digits. pt demo full digit add/abduction. - Strength Parts Sales Manager: right 40# left 50# Lateral Pinch: right 10# left 12# Tripod Pinch: right 8# left 10# - Sensation Thumb: right 2.83 left 2.83 Index: right 2.83 left 2.83 Middle: right 2.83 left 2.83 Ring: right 2.83 left 2.83 Little: right 2.83 left 2.83 - Quick DASH-Disab of Arm,Shoulder& Hand Quick DASH Score: 34.0900 - Goals Goal:: pt will report right hand pain no greater than 1/10 with use of right UE with ADls and IADLS by d/c Goal:: pt will demo understanding of using ad. eq. to increase his ind. with ADls and IADLs by d/c. pt will demo increase use of Bilateral UE with tsf to limit pressure on right hand by d/c - Rehabilitation General Assessment: Pt demo with pain in right hand due to ambulation with his crutches- pt also reports with colder temp- spacticity increases in LE increasing difficulty with his mobility. pt is increasing use of UE with ambulation increasing pain in right hand. Pt would benefit from skilled OT services 1-2x week for 4 weeks to ed. on joint protection, ergo and use of ad. devices to increase pts ind with ADls and IADLS. Pt agree to POC. Rehabilitation Potential: Questionable - Anticipated Interventions Joint Protection/Energy Conservation, Ergonomic Education, Neuro Reeducation, Caregiver Training, Home Program - Visit Plan Frequency: 1-2x /Week Duration: 4 Weeks TEXT: Thank you for the opportunity to evaluate your patient. For Medicare and Medicare HMO plans, please review the plan of care and approve it. It will need to be FAXED BACK to us at [phone] for Medicare purposes. Please let me know if there are questions or concerns regarding this plan of care. Physician Signature: Date:
--- NOTE | 2020-12-19 13:19 | HP.PTEVAL_ITS ---
Patient's Visit Information DENNIS MALLOY is a 25 year old M referred to Physical Therapy by Maria Elena Mckeon NP-C with a diagnosis of CP. Date of Evaluation: 12/19/20 Physical Therapist: Kg Simms, NEETUT, OCS, CSCS - Visit Plan Frequency: 1x/Week Duration: 4-6 Weeks Plan: weekly x 4-6 ... Please work on gym ex for LE and core adn progress to I at own gym with exercises he can do on his own or mat exercises for muscle groups that are not realistic for machines. Also, please gait train throughout gym for only slight WB thorugh palms on crutches vs the FWB in palms that he tends when left to his own volition. Work on dynamic balance without UE crutches as able. - Subjective Round the clock staff, maciej, presents with him today. Lives in group apartment with a roomy. Started college at [employer]in [employer]. Has been going to [employer] one day per week and plays soccer and walks other days. Doing leg press, back extension, hip flexor 1-2x/week adn he loves them. Still wants PT. Muscle in legs feel tighter in winter adn that puts more pressure on hands. Only has Saturday adn double staff adn could only do stuff with roomy. Feels like mobility is good but needs to be stronger t take pressure off hands. No pain. uses canes B forearm to get around. They hurt his hands in the winter as his legs get tighter. Is self reliant at home, showeers and tub trasnfers are I. Does own laundry except top stacked dryer which is out of his reach. Less confident getting around in Winter on ice and snow. No falls. Cramps in back of L knee at times. Uses ramp at school, has steps. - Objective Pt ambulates back to PT with forearm crutches B I. Without them can walkbet steps are shorter adn has larger B R>L trendelnberg gait. Tends to put all weight through UE crutches to walk but does not need to. Needs cues to just tap the crutch ont he gorund to decrease stress through palms which hurt. Uses UE to stand from chair but can get up without UE(knees come together but does have the strength. Needs cues to not use UE. Can stand without support I 60+ seconds wiwth fair balance. Steps are preferring to use R and needs two rails due to weakness, avids FW weight shift as knee ROM is very limtied B and has to pull with UE. Is mod I on steps with rails though.Scared to come down without CGA. can use either leg but prefers R despite it being weaker. AROM hips to 0 ext and 100 flexion and 20 abd, knees to 90 B very firm endfeel. full extension PROM. Ankles have AFOs in place which are relatively new and seem to have a good fit adn are functional. No AROM ankles. sterength hip abd L 3 and R 3-, ext L 3 and R 3-, flexion L 3+ and R 3. adduction 4 B. knee ext strength3 B and HSC 3+ B. Flexibility is poor in hip flexors to neutral only. adductors also tight. HS max tight at -35 90/90 test. quads hard to test due to limited knee ROM and gets to about 90. - Goals Goal 1:: Walk into adn out of PT using slight weight through curtches adn no palm pain without VC. Goal Time Frame: 4-6 Weeks Goal 2:: Exit chair I without UE without VC Goal Time Frame: 4-6 Weeks Goal 3:: I approp machine based strength for I(Pt to join a gym and continue 2x/week on his own at that point.) Goal Time Frame: 4-6 Weeks - Rehabilitation Potential Physical Therapy Diagnosis: CP Rehabilitation Potential: Fair - Anticipated Interventions Patient/Client Instruction: Educate patient on: Condition For the Purpose of:: To decrease pain, To improve muscle performance and motor function, To increase tolerance to activity/condition/position, To improve ability of physical actions for home/community/work/leisure Therapeutic Exercise to Include: Strength training, Flexibilty training, Gait and locomotor training For the Purpose of:: To decrease pain, To improve muscle performance and motor function, To increase tolerance to activity/condition/position Thank you for the opportunity to evaluate your patient. For Medicare and Medicare HMO plans, please review the plan of care and approve it. It will need to be FAXED BACK to us at [phone] for Medicare purposes. For Medicare only, by signing this I certify the plan of care. Please let me know if there are questions or concerns regarding this plan of care. Physician Signature: Date:
--- NOTE | 2021-01-23 11:30 | HP.OTDCSUM ---
It has been my pleasure to treat DENNIS MALLOY under orders from ODILIA Story, for the diagnosis of CP, Spastic quadripleagia for a total of 5 visit(s). Please see the following information for a summary of their discharge status. % Improvement: 75 Objective/Function: pt pain has decreased at this time to 1-2/10 and on bad days 310- pt demo understanding of using padding to handles. pt agree with dc Patient Goals: Regain Mobility, Decrease Pain Goal:: pt will report right hand pain no greater than 1/10 with use of right UE with ADls and IADLS by d/c Goal:: pt will demo understanding of using ad. eq. to increase his ind. with ADls and IADLs by d/c. pt will demo increase use of Bilateral UE with tsf to limit pressure on right hand by d/c Plan: D/C Discharge Comments: pt was seen for OT eval on 12/19/20 with dx of CP, Spastic quadripleagia. Pts main c/o was pain in his hands since he recived his ad. devices forearm crutches. Therapy ed. pt on a variety of different padding he can use for his forearm crutches this did help- mostly pain is less the less he is up and ambulating. since pts new forearm crutches broke pt has been using his old forearm crutches and his hand pain is down to a dull pain 1-2/10 or a bad day 3/10. pt to cont with foream stretches, use of padding with forearm crutches. pt is in process of getting forearm crutches but is held up with insurance. pt to cont. with PT to cont strengthening LE to decrease need of UE support with ambulation. pt agree to POC. If there are questions or concerns regarding this patient's occupational therapy, please fell free to call me at [phone]. Thank you for the referral of this patient. Sincerely, Daphnie Wagner, OTR/L, CHT
--- NOTE | 2021-01-23 13:51 | HP.PTREVAL ---
Maria Elena Mckeon, CHARLES-Suresh, It has been my pleasure to treat DENNIS MALLOY over the last 5 visits for CP. Please see the progress note below for an update on the physical therapy plan of care! Subjective: N pain lately. Walked up and down steps at movie theater and was slow. Hands feel better and walking with canes with less weight through UE. Still wants to get to [employer] but has not joined yet. Dad recovering from hernia. Staff will take him where he needs to go. Knees still touch when he does stuff. Objective/Function: Walks with two canes with very little weight through UE, can walk 100 feet plus without canes. Steps using R only as it is hard to get L onto next step adn L is weaker pushing up, scared to lower down with L. Needs two rails. Flexibility is status quo for patient with increased tone in hip adductors and HS. Knees come together when transferring off chair. Pt struggling with getting membership and questionable whether he could continue on his os point but defintiely has potential. Appropriate to cotninue therapy with fair prognosis. Plan Plan: weekly x 4 to work toward I in gym program. Emphasized to patient this session that one more month in gym should be enough to get him I if he will be able to and he needs to join a gym([facility] vs [employer]). Home life is limiting factor in this(mom and dad dropping the ball)Please ensure I and give list, to patient. Goals Goal 1:: Walk into adn out of PT using slight weight through curtches adn no palm pain without VC. Goal Time Frame: 4-6 Weeks Goal Progress: Goal Met Goal 2:: Exit chair I without UE without VC Goal Time Frame: 4-6 Weeks Goal Progress: Goal Met Goal 3:: I approp machine based strength for I(Pt to join a gym and continue 2x/week on his own at that point.) Goal Time Frame: 4-6 Weeks Goal Progress: Progressing,a pprop. Anticipated Interventions Patient/Client Instruction: Educate patient on: Condition For the Purpose of:: To decrease pain, To improve muscle performance and motor function, To increase tolerance to activity/condition/position, To improve ability of physical actions for home/community/work/leisure Therapeutic Exercise to Include: Strength training, Flexibilty training, Gait and locomotor training For the Purpose of:: To decrease pain, To improve muscle performance and motor function, To increase tolerance to activity/condition/position Please do not hesitate to contact me at [phone] by phone or if you have questions or concerns regarding this new plan of care! Sincerely, Kg Simms, DPT, OCS, CSCS
--- NOTE | 2021-02-27 12:35 | HP.PTDCSUM ---
It has been my pleasure to treat DENNIS MALLOY referred by ODILIA Story, with the diagnosis of CP for a total of 9 visit(s). Discharge Date: 02/27/21 Please see the following information for a summary of their discharge status. Subjective: Had a cold last week so a little itred. No pain.. Mom is going to have him sign up and continue. Hand pain is better adn fine. Sit to stadn exercise at home. Working [employer] 1 day per week. No cncerns with AFOs or function.Feels like he can join and come in 2x/week now. % Improvement: 95 Objective/Function: Walks without canes I, with canes quick and more functional with balance. steps uses R up and down with one rail and one cane. Trasnfer on and off table I. Tightness persists in adductors, Internal rotators, hip flexors and HS limiting ROM but functioning well. Ovrall doing well and should be able to continue on his own. Goal 1:: Walk into adn out of PT using slight weight through curtches adn no palm pain without VC. Goal Progress: Goal Met Goal 2:: Exit chair I without UE without VC Goal Progress: Goal Met Goal 3:: I approp machine based strength for I(Pt to join a gym and continue 2x/week on his own at that point.) Goal Progress: Goal Met Plan: d/c Discharge Comments: Pt to continue via membership. If there are questions or concerns regarding this patient's physical therapy, please feel free to call me at [phone]. Thank you for the referral of this patient. Sincerely, Kg Simms, DPT, OCS, CSCS
== END 2021-02-27 19:00 | disposition home or self-care (01) ==
LOC: PT 12:00
PROVIDERS: PCP Registered Nurse; Referring Provider Registered Nurse; Visit Provider Registered Nurse
DX: G80.0 Spastic quadriplegic cerebral palsy (principal)
CPT/HCPCS: 97110; 97162; 97166; 97530